=== PATIENT | female | born 1955 | race Caucasian/White ===

== ENCOUNTER 2017-12-23 14:20 | Outpatient (CLI) | payer MEDICARE ==
--- NOTE | 2017-12-24 18:49 | Mammography Report ---
DIGITAL SCREENING MAMMOGRAM: 12/23/2017 CLINICAL INDICATION: A 62-year-old for baseline. TECHNIQUE: Routine CC and MLO projections were obtained of the breasts. FINDINGS: The breasts demonstrate heterogeneously dense fibroglandular parenchyma bilaterally. A few punctate, typically benign calcifications are present. No suspicious masses, clustered microcalcifications, or regions of architectural distortion are identified. IMPRESSION: BENIGN FINDINGS. RECOMMENDATION: Routine annual screening unless otherwise clinically indicated. BIRADS category 2 benign findings. STANDARD QUALIFYING STATEMENTS 1. This examination was reviewed with the aid of Computed-Aided Detection (CAD). 2. A negative or benign imaging report should not delay biopsy if clinically suspicious findings are present. Consider surgical consultation if warranted. More than 5% of cancers are not identified by imaging. 3. Dense breasts may obscure an underlying neoplasm. TD: 12/24/2017 18:48
== END 2017-12-23 14:21 | disposition home or self-care (01) ==
LOC: DI 14:20
PROVIDERS: ATTEND Internal Medicine
DX: Z12.31 Encounter for screening mammogram for malignant neoplasm of breast (principal)
CPT/HCPCS: 77067

== ENCOUNTER 2017-12-23 14:23 | Outpatient (CLI) | payer MEDICARE ==
--- NOTE | 2017-12-24 14:32 | DEXA Report ---
DEXA SCAN: 12/23/2017 CLINICAL INDICATION: Postsurgical malabsorption, postmenopausal. TECHNIQUE: Dual energy x-ray absorptiometry (DXA) was performed on a [email or web address] system. Regions measured are the AP spine, femoral neck, and, if needed, forearm. COMPARISON: None. In accordance with the International Society for Clinical Densitometry (ISCD) guidelines, data from previous exams may be reanalyzed using current recommendations and techniques. This is done to allow a more accurate basis for comparison with the current study. FINDINGS The data for the lumbar spine is as follows: REGION BMD (g/cm/cm) T-SCORE Z-SCORE L1 1.175 0.4 1.8 L2 1.219 0.2 1.6 L3 1.220 0.2 1.6 L4 1.209 0.1 1.5 L1-L4 1.207 0.2 1.6 NOTE: All evaluable vertebrae are used for classification. The data for the hip is as follows: REGION BMD (g/cm/cm) T-SCORE Z-SCORE Neck 1.043 0.0 1.4 TOTAL 1.097 0.7 1.8 NOTE: The femoral neck or total proximal femur, whichever is lowest, is used for classification. IMPRESSION THE WHO CLASSIFICATION BASED ON THE INTERNATIONAL REFERENCE STANDARD IS NORMAL. THE FRACTURE RISK IS NOT INCREASED. RECOMMENDATION: Patients with diagnosis of osteoporosis or osteopenia should have regular bone mineral density assessment. For those eligible for Medicare, routine testing is allowed once every 2 years. Testing frequency can be increased for patients who have rapidly progressing disease or for those who are receiving medical therapy to restore bone mass. COMMENT: World Health Organization (WHO) definitions for osteoporosis and osteopenia: NORMAL BMD: T-score at 1.0 or higher, fracture risk is low. OSTEOPENIA BMD: T-score between 1.0 and -2.5, fracture risk is increased. OSTEOPOROSIS BMD: T-score at 2.5 or lower, fracture risk high. National Osteoporosis Foundation recommends: 1. Obtain adequate dietary calcium (at least 1200 mg per day) and vitamin D (400 -800 international units per day). 2. Participate, as appropriate, in regular weightbearing and muscle- strengthening exercise. 3. Avoid tobacco use and reduce alcohol and caffeine intake. 4. For more detailed information see the website at www.NOF.org. TD: 12/23/2017 16:09 CINTHIA
== END 2017-12-23 14:24 | disposition home or self-care (01) ==
LOC: DI 14:23
PROVIDERS: ATTEND Internal Medicine
DX: Z13.820 Encounter for screening for osteoporosis (principal); N95.8 Other specified menopausal and perimenopausal disorders
CPT/HCPCS: 77080

== ENCOUNTER 2018-01-30 11:41 | Outpatient (CLI) | payer SELFPAY | END 2018-01-30 11:42 | disposition home or self-care (01) | LOC: LAB 11:41 | PROVIDERS: ATTEND Urology | DX: N20.0 Calculus of kidney (principal) | CPT/HCPCS: 36415 ==

== ENCOUNTER 2018-07-04 18:27 | Inpatient (IN) | payer MEDICARE ==
[2018-07-04 19:12] LABS: BASOPHILS % (AUTO) 0.5 %; EOSINOPHILS # (AUTO) 0.1 10^3/uL (0.0-0.7); EOSINOPHILS % (AUTO) 1.2 %; HGB - HEMOGLOBIN 13.4 g/dL (12.0-16.0); LYMPHOCYTES # (AUTO) 3.1 10^3/uL (1.5-3.5); LYMPHOCYTES % (AUTO) 43.4 %; MEAN CORPUSCULAR HEMOGLOBIN 32.1 pg (27.0-31.0); MEAN CORPUSCULAR HGB CONC 35.3 g/dL (32.0-36.0); MEAN PLATELET VOLUME 7.1 fL (7.9-10.8); MONOCYTES # (AUTO) 0.6 10^3/uL (0.0-1.0); MONOCYTES % (AUTO) 8.3 %; NEUTROPHILS # (AUTO) 3.3 10^3/uL (1.5-6.6); NEUTROPHILS % (AUTO) 46.6 %; PLT - PLATELET COUNT 400 10^3/uL (130-450); RED BLOOD COUNT 4.17 10^6/uL (4.20-5.40); RED CELL DISTRIBUTION WIDTH 14.5 % (12.0-15.0); WHITE BLOOD COUNT 7.1 x10^3/uL (4.8-10.8)
[2018-07-04 19:23] LABS: ALBUMIN 4.1 g/dL (3.2-5.5); ALBUMIN/GLOBULIN RATIO 1.1 (1.0-2.2); ALKALINE PHOSPHATASE 79 IU/L (42-121); ALT ALANINE AMINOTRANSFERASE 16 IU/L (10-60); AST ASPARTATE AMINOTRANSFERASE 21 IU/L (10-42); BILIRUBIN,TOTAL < 0.2 mg/dL (0.2-1.0); BUN - BLOOD UREA NITROGEN 18 mg/dL (6-20); CALCIUM 9.2 mg/dL (8.5-10.3); CARBON DIOXIDE - CO2 25 mmol/L (21-32); CHLORIDE 99 mmol/L (101-111); GFR - MDRD 56 (>89); GLUCOSE 171 mg/dL (70-100); LIPASE 33 U/L (22-51); SODIUM 132 mmol/L (135-145); TOTAL PROTEIN 7.7 g/dL (6.7-8.2)
[2018-07-04] MEDS ORDERED: KETOROLAC 60 MG/2 ML VIAL IVP STA (20:04)
[2018-07-04] MEDS ORDERED: SODIUM CHLORIDE 0.9% 1,000 ML IV ONE (20:04)
[2018-07-04] MEDS ORDERED: ONDANSETRON 4 MG/2 ML VIAL IVP STA (20:04)
--- NOTE | 2018-07-04 20:06 | ED Physician Documentation ---
History of Present Illness - Stated complaint Stated Complaint: FEMALE FU - Chief complaint Chief Complaint: Abd Pain - History obtained from History obtained from: Patient - Additonal information Additional information: 63-year-old female with a history of recurrent small bowel obstructions presents the emergency department for increasing lower abdominal pain with No bowel movements for the past 7 days and associated nausea. The pain has progressively worsened. No relieving factors. No triggering factors. The patient reports this being similar to prior episodes of her bowel obstructions. No relieving factors. No triggering factors. Symptoms are described as moderate Review of Systems Constitutional: reports: Chills, Fatigue. denies: Fever Eyes: denies: Loss of vision Ears: denies: Ear pain Throat: denies: Sore throat Cardiac: denies: Chest pain / pressure Respiratory: denies: Dyspnea GI: reports: Abdominal Pain, Nausea, Constipation : denies: Dysuria Skin: denies: Rash Musculoskeletal: denies: Back pain Neurologic: denies: Generalized weakness Immunocompromised: denies: Chemotherapy PD PAST MEDICAL HISTORY - Past Medical History Past Medical History: Yes Cardiovascular: None Respiratory: None Endocrine/Autoimmune: None GI: GERD, Chronic constipation, Other : Kidney stones HEENT: None Psych: None, Anxiety, Panic attacks Musculoskeletal: None Derm: None - Past Surgical History Past Surgical History: Yes General: Cholecystectomy, Appendectomy, Colonoscopy, Other 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 - Present Medications Home Medications: Ambulatory Orders Medication Instructions Recorded Confirmed Estrogens, Conjugated [Premarin] 1.25 mg PO DAILY 04/08/14 12/05/15 Gabapentin 300 mg PO TID 04/08/14 12/05/15 Ciprofloxacin HCl [Cipro] 500 mg PO BID #20 tablet 12/05/15 Ketorolac [Toradol] 5 mg PO Q6H PRN #16 tablet 12/05/15 Saccharomyces Boulardii [Florastor] 500 mg PO BID #40 capsule 12/05/15 Tamsulosin [Flomax] 0.4 mg PO DAILY #7 capsule 12/05/15 - Allergies Allergies/Adverse Reactions: Allergies Allergy/AdvReac Type Severity Reaction Status Date / Time haloperidol [From Haldol] Allergy Hallucinati Verified 11/21/14 15:02 ons haloperidol lactate * Allergy Hallucinati Verified 11/21/14 15:02 [From Haldol] ons lorazepam [From Ativan] Allergy Hallucinati Verified 11/21/14 15:02 ons - Social History Does the pt smoke?: Yes Smoking Status: Current some day smoker Does the pt drink ETOH?: Yes Does the pt have substance abuse?: No Substance Use and Type: Marijuana - Immunizations Immunizations are current?: Yes - POLST Patient has POLST: No PD ED PE NORMAL - General General: Alert and oriented X 3. No: No acute distress (The patient appears uncomfortable) - HEENT HEENT: Atraumatic, PERRL, EOMI, Ears normal - Cardiac Cardiac: RRR, Strong equal pulses - Respiratory Respiratory: No respiratory distress, Clear bilaterally - Abdomen Abdomen: Soft, Non distended. No: Non tender (The patient has generalized tenderness, there is no rebound or peritoneal signs) - Derm Derm: Normal color - Extremities Extremities: No deformity, No edema - Neuro Neuro: Alert and oriented X 3, Normal speech - Psych Psych: Normal mood Results - Vitals Vitals: Vital Signs - 24 hr 07/04/18 18:36 Temperature 36.2 C L Heart Rate 75 Respiratory 14 Rate Blood Pressure 139/69 H O2 Saturation 99 Oxygen O2 Source Room air - Labs Labs: Laboratory Tests 07/04/18 07/04/18 07/04/18 19:02 19:02 20:00 WBC 7.1 RBC 4.17 L Hgb 13.4 Hct 37.9 MCV 91.0 MCH 32.1 H MCHC 35.3 RDW 14.5 Plt Count 400 MPV 7.1 L Neut # (Auto) 3.3 Lymph # (Auto) 3.1 Hinds # (Auto) 0.6 Eos # (Auto) 0.1 Baso # (Auto) 0.0 Absolute Nucleated RBC 0.01 Nucleated RBC % 0.1 Sodium 132 L Potassium 3.8 Chloride 99 L Carbon Dioxide 25 Anion Gap 8.0 BUN 18 Creatinine 1.0 Estimated GFR (MDRD) 56 L Glucose 171 H Calcium 9.2 Total Bilirubin < 0.2 L AST 21 ALT 16 Alkaline Phosphatase 79 Total Protein 7.7 Albumin 4.1 Globulin 3.6 Albumin/Globulin Ratio 1.1 Lipase 33 Urine Color YELLOW Urine Clarity CLEAR Urine pH 6.0 Ur Specific [place] 1.015 Urine Protein NEGATIVE Urine Glucose (UA) NEGATIVE Urine Ketones NEGATIVE Urine Occult Blood NEGATIVE Urine Nitrite NEGATIVE Urine Bilirubin NEGATIVE Urine Urobilinogen 0.2 (NORMAL) Ur Leukocyte Esterase NEGATIVE Ur Microscopic Review NOT INDICATED Urine Culture Comments NOT INDICATED - Rads (name of study) CT abd/pelvis Radiology: Final report received (1. Nonobstructing bilateral intrarenal stones , left greater than right. 2. Mild diffuse small bowel dilatation most likely representing ileus. There are postoperative changes involving the mesentery however no evidence of high-grade mechanical bowel obstruction, fluid collection or pneumoperitoneum. ) PD MEDICAL DECISION MAKING - ED course ED course: The patient's workup shows an ileus and the patient has not had a bowel movement for the past several days. Given the patient's history of recurrent bowel obstructions she will benefit from admission to the hospital for further management to improve her bowel function. The findings and plan were discussed the patient understands and agrees. The case was discussed with the hospitalist who accepts the patient onto his service. - Sepsis Event Vital Signs: Vital Signs - 24 hr 07/04/18 18:36 Temperature 36.2 C L Heart Rate 75 Respiratory 14 Rate Blood Pressure 139/69 H O2 Saturation 99 Oxygen O2 Source Room air Departure - Departure Disposition: ED Place in Observation Clinical Impression: Acute abdominal pain, Ileus Condition: Fair
[2018-07-04 20:12] LABS: BILIRUBIN,URINE NEGATIVE (NEGATIVE); GLUCOSE, URINE (UA) NEGATIVE (NEGATIVE); KETONES,URINE (UA) NEGATIVE (NEGATIVE); LEUKOCYTE ESTERASE, URINE NEGATIVE (NEGATIVE); NITRITE,URINE NEGATIVE (NEGATIVE); OCCULT BLOOD,URINE NEGATIVE (NEGATIVE); PROTEIN,URINE NEGATIVE (NEGATIVE); UROBILINOGEN,URINE 0.2 (NORMAL) E.U./dL (NORMAL)
[2018-07-04 20:18] LABS: CLARITY,URINE CLEAR (CLEAR)
--- NOTE | 2018-07-04 20:38 | CT Report ---
Reason: abd pain for few days Procedure Date: 07/04/2018 Accession Number: [id number] / [id number] Procedure: CT - Abdomen/Pelvis W/O CPT Code: FULL RESULT: EXAM: CT ABDOMEN AND PELVIS EXAM DATE: 07/04/2018 08:02 PM. CLINICAL HISTORY: Abd pain for few days. COMPARISONS: ABDOMEN/PELVIS W/O 12/05/2015. TECHNIQUE: Routine helical CT imaging was performed through the abdomen and pelvis. IV contrast: . Enteric contrast: No. Reconstructions: Coronal and sagittal. In accordance with CT protocol optimization, one or more of the following dose reduction techniques were utilized for this exam: automated exposure control, adjustment of mA and/or KV based on patient size, or use of iterative reconstructive technique. FINDINGS: Lung Bases: Unremarkable. Liver: Normal. No masses. Gallbladder/Bile Ducts: Unremarkable. Spleen: Normal. Pancreas: Normal. Adrenal Glands: Normal. Kidneys: There are numerous calyceal stones scattered throughout the left kidney measuring up to 9 mm. A few punctate right intrarenal stones are also seen. There are no obstructing calculi. Peritoneal Cavity/Bowel: There is been previous bowel resections. There is mild small bowel dilatation without evidence of high-grade obstruction. No fluid collections or free air. No evidence of appendicitis. Pelvic Organs: The uterus has been removed. There is no pelvic mass, lymphadenopathy or fluid collection. The urinary bladder is unremarkable. Vasculature: No aneurysms or other significant abnormality. Bones: No significant abnormality. Other: None. IMPRESSION: 1. Nonobstructing bilateral intrarenal stones, left greater than right. 2. Mild diffuse small bowel dilatation most likely representing ileus. There are postoperative changes involving the mesentery however no evidence of high-grade mechanical bowel obstruction, fluid collection or pneumoperitoneum. RADIA
[2018-07-04] MEDS ORDERED: ONDANSETRON 4 MG/2 ML VIAL IVP PRN (22:14)
[2018-07-04] MEDS ORDERED: NICOTINE 14 MG PATCH TOP SCH (22:25)
--- NOTE | 2018-07-04 22:50 | HISTORY & PHYSICAL EXAMINATION ---
Chief Complaint - Chief Complaint Chief Complaint: diffuse abdominal pain History of Present Illness - History of Present Illness HPI Comment/Other: Patient is a 63 y/o female with history of multiple bowel obstructions owing to several abdominal surgeries who presented to the ED today with complain of diffuse sharp abdominal pain and cramp. She also complains of nausea but no vomiting and decreased appetite. She reports having a small bowel movement today and then a 'watery' stool after that. Prior to this, her last BM was 7 days ago. She denies chest pain or PRIMO. No fever or chills. Her last episode of bowel obstruction was 11 years ago. At bedside she appears to be resting comfortably. However she rates he pain 8/ 10. He abdomen is soft and non-distended but diminished bowel sounds noted. The rest of her history is unremarkable. 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 : reports: None, Kidney stones HEENT: reports: None Psych: reports: None, Anxiety, Panic attacks Musculoskeletal: reports: None Derm: reports: None MRSA Hx?: No - Past Surgical History General: reports: Cholecystectomy, Appendectomy, Colonoscopy, Other Ortho: reports: 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 - Family & Social History Family History: Mother: , CVA/TIA, Hypertension, Father: , Hypertension, [place] Living arrangement: At home - Substance History Use: Uses substance without health or social issues: Tobacco, Alcohol Dependence: Experiences withdrawal or developed tolerances: NONE Tobacco Details: Cigarettes - POLST Patient has POLST: No Meds/Allgy - Home Medications Home Medications: Ambulatory Orders Medication Instructions Recorded Confirmed Estrogens, Conjugated [Premarin] 1.25 mg PO DAILY 04/08/14 12/05/15 Gabapentin 300 mg PO TID 04/08/14 12/05/15 Ciprofloxacin HCl [Cipro] 500 mg PO BID #20 tablet 12/05/15 Ketorolac [Toradol] 5 mg PO Q6H PRN #16 tablet 12/05/15 Saccharomyces Boulardii [Florastor] 500 mg PO BID #40 capsule 12/05/15 Tamsulosin [Flomax] 0.4 mg PO DAILY #7 capsule 12/05/15 - Allergies Allergies/Adverse Reactions: Allergies Allergy/AdvReac Type Severity Reaction Status Date / Time haloperidol [From Haldol] Allergy Hallucinati Verified 11/21/14 15:02 ons haloperidol lactate * Allergy Hallucinati Verified 11/21/14 15:02 [From Haldol] ons lorazepam [From Ativan] Allergy Hallucinati Verified 11/21/14 15:02 ons Review of Systems - Constitutional Constitutional: reports: Poor appetite - Eyes Eyes: denies: Pain, Vision loss - Ears, Nose & Throat Ears, Nose & Throat: denies: Hearing loss, Sore throat - Cardiovascular Cariovascular: denies: Chest pain, Syncope - Respiratory Respiratory: denies: Cough, Wheezing, SOB at rest - Gastrointestinal Gastrointestinal: reports: Abdominal pain, Constipation, Nausea, Poor appetite. denies: Vomiting - Musculoskeletal Musculoskeletal: denies: Muscle pain, Muscle weakness, Joint swelling - Integumentary Integumentary: denies: Rash, Pruritis, Dryness - Neurological Neurological: denies: Headache, Dizziness, Numbness, Memory problems, Abnormal gait - Psychiatric Psychiatric: reports: Anxiety - Endocrine Endocrine: denies: Polyuria, Polydypsia - All Other Systems All Other Systems: reports: Reviewed and negative Exam - Vital Signs Vital Signs: Vital Signs x48h Temp Pulse Resp BP Pulse Ox 07/04/18 18:36 36.2 C L 75 14 139/69 H 99 - Physical Exam General Appearance: positive: Mild distress Eyes Bilateral: positive: PERRL, EOMI, No scleral icterus ENT: positive: ENT inspection nml, Purulent nasal drainage, Pharyngeal erythema , Oral lesions Neck: positive: Nml inspection, No JVD, Trachea midline, Lymphadenopathy (R), Lymphadenopathy (L) Respiratory: positive: Chest non-tender, No respiratory distress, Breath sounds nml. negative: Wheezes, Rales, Rhonchi Cardiovascular: positive: Regular rate & rhythm. negative: No murmur, No gallop , JVD present Abdomen: positive: No organomegaly, No distention, Tenderness (mild), Abnml bowel sounds (decreased). negative: Guarding Skin: positive: Color nml. negative: No rash, Cyanosis Extremities: positive: Nml appearance, No pedal edema Neurologic/Psychiatric: positive: Oriented x3, CN's nml (2-12), Mood/affect nml Conclusion/Plan - Problem List (1) Ileus Conclusion/Plan: Patient made NPO except for meds IV hydration with Normal saline at 100cc/hr Zofran 4mg IV q6hrs prn for nausea Toradol 15mg IV q6hr prn for pain Expect resolution. If worsening of symptoms within the next 12-24 hrs, Will consult general surgery (2) Calculus of kidney and ureter Conclusion/Plan: Non-obstructing and asymptomatic. Will monitor (3) Tobacco abuse Conclusion/Plan: Nicotine patch applied (4) DVT prophylaxis Conclusion/Plan: SCD's. Ambulate - Lab Results Fish Bones: 07/04/18 19:02 07/04/18 19:02 Core Measures - Anticipated LOS I expect patient to be DC'd or transferred within 96 hours.: Yes - DVT/VTE - Prophylaxis VTE/DVT Device ordered at admit?: Yes VTE/DVT Prophylaxis med ordered at admit?: No Not Ordered - Medical Reason: Not indicated (Patient can ambulate with no difficulties.)
[2018-07-05] MEDS: GABAPENTIN 300 MG CAPSULE PO SCH ×4 (00:15→20:16)
[2018-07-05] MEDS: SODIUM CHLORIDE 0.9% 1,000 ML IV SCH ×3 (02:32→17:35)
[2018-07-05] MEDS: SODIUM CHLORIDE FLUSH 0.9% 10 ML SYRINGE IVP SCH ×3 (03:04→16:03)
[2018-07-05] MEDS: KETOROLAC 15 MG/ML VIAL IVP PRN ×3 (06:03→20:08)
[2018-07-05 06:31] LABS: BASOPHILS % (AUTO) 0.4 %; EOSINOPHILS # (AUTO) 0.1 10^3/uL (0.0-0.7); EOSINOPHILS % (AUTO) 1.5 %; HGB - HEMOGLOBIN 11.6 g/dL (12.0-16.0); LYMPHOCYTES # (AUTO) 2.3 10^3/uL (1.5-3.5); LYMPHOCYTES % (AUTO) 42.8 %; MEAN CORPUSCULAR HEMOGLOBIN 30.9 pg (27.0-31.0); MEAN CORPUSCULAR HGB CONC 33.7 g/dL (32.0-36.0); MEAN CORPUSCULAR VOLUME 91.7 fL (81.0-99.0); MEAN PLATELET VOLUME 6.9 fL (7.9-10.8); MONOCYTES # (AUTO) 0.6 10^3/uL (0.0-1.0); MONOCYTES % (AUTO) 11.2 %; NEUTROPHILS # (AUTO) 2.3 10^3/uL (1.5-6.6); NEUTROPHILS % (AUTO) 44.1 %; PLT - PLATELET COUNT 322 10^3/uL (130-450); RED BLOOD COUNT 3.75 10^6/uL (4.20-5.40); RED CELL DISTRIBUTION WIDTH 14.5 % (12.0-15.0); WHITE BLOOD COUNT 5.3 x10^3/uL (4.8-10.8)
[2018-07-05 06:40] LABS: CALCIUM 8.1 mg/dL (8.5-10.3); CREATININE 1.2 mg/dL (0.4-1.0)
[2018-07-05] MEDS ORDERED: PANTOPRAZOLE 40 MG TABLET PO SCH (07:00)
[2018-07-05] MEDS ORDERED: METOCLOPRAMIDE 10 MG/2 ML VIAL IVP PRN (07:45)
[2018-07-05] MEDS ORDERED: METOCLOPRAMIDE 10 MG/2 ML VIAL IVP STA ×2 (09:04)
--- NOTE | 2018-07-05 13:41 | PROVIDER PROGRESS NOTE ---
Subjective - Prog Note Date Prog Note Date: 07/05/18 - Subjective Pt reports feeling: Improved Subjective: pt tolerate clear diet without N/V/D. but pt still complaint diffused abdominal pain. pt denies CP, fever, chill, SOB, headache. Current Medications - Current Medications Current Medications: Active Medications Gabapentin (Neurontin) 300 mg PO TID [facility] Last Admin: 07/05/18 06:03 Dose: 300 mg Sodium Chloride (Normal Saline 0.9%) 1,000 mls @ 100 mls/hr IV .Q10H [facility] Last Infusion: 07/05/18 06:57 Dose: 100 mls/hr Ketorolac Tromethamine (Toradol Inj (15mg)) 15 mg IVP Q6HR PRN PRN Reason: PAIN Stop: 07/09/18 22:29 Last Admin: 07/05/18 06:03 Dose: 15 mg Metoclopramide HCl (Reglan Inj) 5 mg IVP Q6HR PRN PRN Reason: Nausea / Vomiting Ondansetron HCl (Zofran Inj) 4 mg IVP Q6HR PRN PRN Reason: Nausea / Vomiting Pantoprazole Sodium (Protonix) 40 mg PO QDAC [facility] Last Admin: 07/05/18 06:03 Dose: 40 mg Sodium Chloride (Normal Saline Flush 0.9%) 10 ml IVP PRN PRN PRN Reason: NEEDED PER PROVIDER ORDERS Sodium Chloride (Normal Saline Flush 0.9%) 10 ml IVP 0100,0900,1700 [facility] Last Admin: 07/05/18 09:35 Dose: 10 ml Gabapentin 300 mg PO QID 04/08/14 Estropipate 0.75 mg PO DAILY 07/05/18 Losartan [Cozaar] 50 mg PO QPM 07/05/18 raNITIdine [Zantac] 150 mg PO BID 07/05/18 Objective - Objective General Appearance: positive: No acute distress, Alert. negative: Lethargic Eyes Bilateral: positive: Normal inspection, PERRL, No lid inflammation, Conjunctivae nml ENT: positive: ENT inspection nml, Pharynx nml, No signs of dehydration. negative: Purulent nasal drainage, Pharyngeal erythema, Oral lesions Neck: positive: Nml inspection, Thyroid nml, No JVD, Trachea midline. negative : Thyromegaly, Lymphadenopathy (R), Lymphadenopathy (L), Stiff neck, Swelling/ bruising, Tracheal deviation Respiratory: positive: Chest non-tender, No respiratory distress, Breath sounds nml. negative: Wheezes, Rales, Rhonchi Cardiovascular: positive: Regular rate & rhythm, No murmur, No gallop. negative : Irregularly irregular, Extrasystoles, Tachycardia, Bradycardia, JVD present, Systolic murmur, Diastolic murmur Peripheral Pulses: 2+ Radial (R), 2+ Radial (L), 2+ Dorsalis pedis (R), 2+ Dorsalis pedis (L) Abdomen: positive: Non-tender, No organomegaly, No distention, Other (mild reduced bowel sounds). negative: Tenderness, Guarding, Rebound Back: positive: Nml inspection. negative: CVA tenderness (R), CVA tenderness (L ) Skin: positive: Color nml, No rash, Warm, Dry. negative: Cyanosis, Diaphoresis , Pallor Extremities: positive: Non-tender, Full ROM, Nml appearance. negative: Calf tenderness, Joint swelling, Cha's sign/cords Neurologic/Psychiatric: positive: Oriented x3, Motor nml, Sensation nml, Mood/ affect nml. negative: Weakness, Sensory loss, Facial droop, Slurred/abnml speech, Depressed mood/affect - Lab Results Fish Bones: 07/05/18 06:22 07/05/18 06:22 ABX Reporting Has patient been on IV antibiotics over the past 48 hours?: No Assessment/Plan - Problem List (1) Ileus Impression: Conclusion/Plan: 07/05 pt tolerate clear diet, no N/V/D. but continue complain diffused abdominal pain pt's bowel is soft, mild reduced bowel sound at left quadrant of abdominal CT of abdomen indicates small bowel ileus continue bowel rest continue IVF for hydration continue Tylenol and Toradol pain control, hold opiates pt's pain, per pt report, is not worsening but improve tolerate of clear diet Reglan PRN for N/V Patient made NPO except for meds IV hydration with Normal saline at 100cc/hr Zofran 4mg IV q6hrs prn for nausea Toradol 15mg IV q6hr prn for pain Expect resolution. If worsening of symptoms within the next 12-24 hrs, Will consult general surgery (2) Calculus of kidney and ureter Conclusion/Plan: Non-obstructing and asymptomatic. Will monitor (3) Tobacco abuse Conclusion/Plan: Nicotine patch applied
[2018-07-05] MEDS: PANTOPRAZOLE 40 MG VIAL IVP SCH ×2 (14:37→20:07)
[2018-07-06] MEDS: SODIUM CHLORIDE FLUSH 0.9% 10 ML SYRINGE IVP SCH ×3 (03:44→16:45)
[2018-07-06] MEDS: SODIUM CHLORIDE 0.9% 1,000 ML IV SCH ×2 (05:32→13:42)
[2018-07-06 06:19] LABS: BASOPHILS % (AUTO) 0.4 %; EOSINOPHILS # (AUTO) 0.1 10^3/uL (0.0-0.7); EOSINOPHILS % (AUTO) 1.2 %; HGB - HEMOGLOBIN 11.4 g/dL (12.0-16.0); LYMPHOCYTES # (AUTO) 1.7 10^3/uL (1.5-3.5); LYMPHOCYTES % (AUTO) 37.6 %; MEAN CORPUSCULAR HEMOGLOBIN 31.2 pg (27.0-31.0); MEAN CORPUSCULAR HGB CONC 33.4 g/dL (32.0-36.0); MEAN CORPUSCULAR VOLUME 93.4 fL (81.0-99.0); MEAN PLATELET VOLUME 7.7 fL (7.9-10.8); MONOCYTES # (AUTO) 0.6 10^3/uL (0.0-1.0); NEUTROPHILS # (AUTO) 2.2 10^3/uL (1.5-6.6); NEUTROPHILS % (AUTO) 47.8 %; PLT - PLATELET COUNT 345 10^3/uL (130-450); RED BLOOD COUNT 3.64 10^6/uL (4.20-5.40); RED CELL DISTRIBUTION WIDTH 14.4 % (12.0-15.0); WHITE BLOOD COUNT 4.6 x10^3/uL (4.8-10.8)
[2018-07-06 06:48] LABS: CALCIUM 7.4 mg/dL (8.5-10.3)
[2018-07-06] MEDS: GABAPENTIN 300 MG CAPSULE PO SCH ×3 (07:03→21:15)
[2018-07-06] MEDS: PANTOPRAZOLE 40 MG VIAL IVP SCH ×2 (09:44→21:16)
[2018-07-06] MEDS: KETOROLAC 15 MG/ML VIAL IVP PRN ×2 (09:57→16:44)
[2018-07-06] MEDS: SODIUM CHLORIDE FLUSH 0.9% 10 ML SYRINGE IVP PRN ×3 (09:58→21:16)
[2018-07-06] MEDS ORDERED: IOPAMIDOL-300 50 ML VIAL ONE (11:19)
[2018-07-06] MEDS ORDERED: IOPAMIDOL-300 100 ML VIAL ONE (11:19)
[2018-07-06] MEDS ORDERED: GABAPENTIN 300 MG CAPSULE PO SCH (13:00)
[2018-07-06] MEDS: METOCLOPRAMIDE 10 MG/2 ML VIAL IVP SCH ×2 (13:09→18:44)
--- NOTE | 2018-07-06 14:21 | CT Report ---
Reason: ileous, abdominal pain, mult. surgeries Procedure Date: 07/06/2018 Accession Number: [id number] / [id number] Procedure: CT - Abdomen/Pelvis W/ CPT Code: FULL RESULT: EXAM: CT ABDOMEN AND PELVIS EXAM DATE: 07/06/2018 01:52 PM. CLINICAL HISTORY: Multiple surgeries. Abdominal pain. COMPARISONS: Abdomen/pelvis w/o 12/05/2015. Abdomen/pelvis w/o 07/04/2018. TECHNIQUE: Routine helical CT imaging was performed through the abdomen and pelvis. IV contrast: Isovue 300 100 mL. Enteric contrast: Oral contrast. Reconstructions: Coronal and sagittal. In accordance with CT protocol optimization, one or more of the following dose reduction techniques were utilized for this exam: automated exposure control, adjustment of mA and/or KV based on patient size, or use of iterative reconstructive technique. FINDINGS: Lung Bases: Unremarkable. Liver: Normal. Tiny hepatic cysts. No masses. Gallbladder/Bile Ducts: Cholecystectomy. Biliary ducts unremarkable for such. Spleen: Normal. Pancreas: Normal. Adrenal Glands: Normal. Kidneys: Numerous 9 mm and smaller stones in the left calyceal system. Several 1 mm stones in the right calyceal system. No hydronephrosis nor perinephric edema. Tiny bilateral renal cysts. Peritoneal Cavity/Bowel: Persistent mild dilatation proximal third of the small bowel with probable transition point left mid abdomen coronal image 27 axial image 51. Oral contrast is seen within the normal caliber distal two thirds of the small bowel and also within the normal caliber colon down to the rectum. No free air nor free fluid. Numerous clips throughout the abdomen. No bowel wall thickening. Appendix not visualized but no inflammatory changes adjacent to the cecum. Pelvic Organs: Hysterectomy. No stones in the small caliber urinary bladder. Normal rectum. Vasculature: No aneurysms or other significant abnormality. Bones: No significant abnormality. Other: None. IMPRESSION: 1. Stable mild/ partial small bowel obstruction junction of the proximal mid third of the ileum. 2. Bilateral nephrolithiasis. RADIA
[2018-07-06] MEDS ORDERED: IOPAMIDOL-300 100 ML VIAL IVP ONE (14:58)
[2018-07-06] MEDS ORDERED: IOPAMIDOL-300 50 ML VIAL PO ONE (14:58)
[2018-07-07] MEDS: KETOROLAC 15 MG/ML VIAL IVP PRN ×4 (00:11→21:38)
[2018-07-07] MEDS: SODIUM CHLORIDE FLUSH 0.9% 10 ML SYRINGE IVP SCH ×3 (00:12→20:32)
[2018-07-07] MEDS: SODIUM CHLORIDE FLUSH 0.9% 10 ML SYRINGE IVP PRN ×5 (00:12→21:38)
[2018-07-07] MEDS: METOCLOPRAMIDE 10 MG/2 ML VIAL IVP SCH ×2 (00:12→06:56)
[2018-07-07 05:56] LABS: BASOPHILS % (AUTO) 0.5 %; EOSINOPHILS % (AUTO) 0.9 %; HGB - HEMOGLOBIN 10.4 g/dL (12.0-16.0); LYMPHOCYTES # (AUTO) 1.8 10^3/uL (1.5-3.5); LYMPHOCYTES % (AUTO) 40.9 %; MEAN CORPUSCULAR HEMOGLOBIN 31.4 pg (27.0-31.0); MEAN CORPUSCULAR HGB CONC 34.1 g/dL (32.0-36.0); MEAN CORPUSCULAR VOLUME 92.1 fL (81.0-99.0); MEAN PLATELET VOLUME 7.1 fL (7.9-10.8); MONOCYTES # (AUTO) 0.7 10^3/uL (0.0-1.0); MONOCYTES % (AUTO) 15.4 %; NEUTROPHILS # (AUTO) 1.9 10^3/uL (1.5-6.6); NEUTROPHILS % (AUTO) 42.3 %; PLT - PLATELET COUNT 306 10^3/uL (130-450); RED BLOOD COUNT 3.31 10^6/uL (4.20-5.40); RED CELL DISTRIBUTION WIDTH 14.5 % (12.0-15.0); WHITE BLOOD COUNT 4.5 x10^3/uL (4.8-10.8)
[2018-07-07 06:08] LABS: ALBUMIN 2.8 g/dL (3.2-5.5); BILIRUBIN,TOTAL 0.2 mg/dL (0.2-1.0); CALCIUM 7.6 mg/dL (8.5-10.3); MAGNESIUM 1.8 mg/dL (1.7-2.8); TOTAL PROTEIN 5.5 g/dL (6.7-8.2)
[2018-07-07] MEDS: ACETAMINOPHEN 325 MG TABLET PO PRN ×2 (06:45→12:20)
[2018-07-07] MEDS: GABAPENTIN 300 MG CAPSULE PO SCH ×3 (06:45→21:38)
[2018-07-07] MEDS: PANTOPRAZOLE 40 MG VIAL IVP SCH ×2 (09:01→20:32)
--- NOTE | 2018-07-07 09:06 | PROVIDER PROGRESS NOTE ---
Subjective - Prog Note Date Prog Note Date: 07/06/18 Prog Note Time: 08:00 - Subjective Pt reports feeling: Improved Subjective: Roxane complains of ongoing bloating, and is tolerating a clear liquid diet. She denies any new symptoms such as shortness of breath, vomiting, diarrhea, or a new cough. Objective - Vital Signs/Intake & Output Reviewed Vital Signs: Yes Vital Signs: Vital Signs x48h Temp Pulse Resp BP Pulse Ox 07/07/18 08:00 36.7 C 65 20 134/68 H 97 Intake & Output: Intake & Output 07/04/18 07/05/18 07/06/18 07/07/18 23:59 23:59 23:59 23:59 Intake Total 2460.000 1737 1150 Balance 2460.000 1737 1150 - Objective General Appearance: positive: No acute distress, Alert, Anxious Eyes Bilateral: positive: Normal inspection, PERRL ENT: positive: ENT inspection nml, Pharynx nml, No signs of dehydration Neck: positive: Nml inspection, Thyroid nml, No JVD, Trachea midline Respiratory: positive: Chest non-tender, No respiratory distress, Breath sounds nml Cardiovascular: positive: Regular rate & rhythm, No murmur, No gallop, Irregularly irregular Peripheral Pulses: 1+ Radial (R), 1+ Radial (L) Abdomen: positive: No organomegaly, Nml bowel sounds, Tenderness, Guarding, Abnml bowel sounds (mildly hypotensive) Back: positive: Nml inspection Skin: positive: No rash, Warm, Dry Extremities: positive: Non-tender, Full ROM, Nml appearance, No pedal edema Neurologic/Psychiatric: positive: Oriented x3, CN's nml (2-12), Motor nml, Sensation nml, Mood/affect nml Reflexes: Bicep (R): 3+, Bicep (L): 3+ - Lab Results Fish Bones: 07/07/18 05:05 07/07/18 05:05 Other Labs: Lab Results x24hrs 07/07/18 07/07/18 07/07/18 Range/Units 05:05 05:05 05:05 WBC 4.5 L (4.8-10.8) x10^3/uL RBC 3.31 L (4.20-5.40) 10^6/uL Hgb 10.4 L (12.0-16.0) g/dL Hct 30.5 L (37.0-47.0) % MCV 92.1 (81.0-99.0) fL MCH 31.4 H (27.0-31.0) pg MCHC 34.1 (32.0-36.0) g/dL RDW 14.5 (12.0-15.0) % Plt Count 306 (130-450) 10^3/uL MPV 7.1 L (7.9-10.8) fL Neut # (Auto) 1.9 (1.5-6.6) 10^3/uL Lymph # (Auto) 1.8 (1.5-3.5) 10^3/uL [place] # (Auto) 0.7 (0.0-1.0) 10^3/uL Eos # (Auto) 0.0 (0.0-0.7) 10^3/uL Baso # (Auto) 0.0 (0.0-0.1) 10^3/uL Absolute Nucleated RBC 0.00 x10^3/uL Nucleated RBC % 0.1 /100WBC Sodium 140 (135-145) mmol/L Potassium 3.9 (3.5-5.0) mmol/L Chloride 112 H (101-111) mmol/L Carbon Dioxide 20 L (21-32) mmol/L Anion Gap 8.0 (6-13) BUN 15 (6-20) mg/dL Creatinine 1.0 (0.4-1.0) mg/dL Estimated GFR (MDRD) 56 L (>89) Glucose 109 H (70-100) mg/dL Calcium 7.6 L (8.5-10.3) mg/dL Magnesium 1.8 (1.7-2.8) mg/dL Total Bilirubin 0.2 (0.2-1.0) mg/dL AST 16 (10-42) IU/L ALT 12 (10-60) IU/L Alkaline Phosphatase 58 (42-121) IU/L Total Protein 5.5 L (6.7-8.2) g/dL Albumin 2.8 L (3.2-5.5) g/dL Globulin 2.7 (2.1-4.2) g/dL Albumin/Globulin Ratio 1.0 (1.0-2.2) Lipase 26 (22-51) U/L ABX Reporting Has patient been on IV antibiotics over the past 48 hours?: No Assessment/Plan - Problem List (1) Acute abdominal pain Impression: The patient complains of mainly bilateral upper quadrant abdominal pain that be edyta prior to admission, and has improved, although not resolved. Plan: Continue to monitor and treat with IV toradol Q6H as needed. Awaiting re-imaging results ordered today. (2) Ileus Impression: Initial imaging obtained on 07/04/18, showed a possible early ilious. She was put on clear liquids, that have been advanced as her nausea is much improved since the time of admission. Plan: Continue care and await imaging results to ensure improvement in possible ileus. (3) History of bowel resection Impression: The patient has a remote history of this, including multiple bowel surgeries in the past. She states that she consequently has multiple bowel adhesions/scarring and has been more prone to obstructions. Plan: Await imaging results. (4) Tobacco abuse Impression: The patient admits to a current smoking history and is now down to about 5 cigarettes per day. She is somewhat interested in quitting. She refuses the need for nicotine replacement. Plan: Continue to monitor.
[2018-07-07] MEDS: FUROSEMIDE 20 MG TABLET PO SCH (10:26)
[2018-07-07] MEDS: METOCLOPRAMIDE 10 MG TABLET PO SCH ×2 (11:22→19:05)
--- NOTE | 2018-07-07 13:09 | PROVIDER PROGRESS NOTE ---
Subjective - Prog Note Date Prog Note Date: 07/07/18 Prog Note Time: 12:00 - Subjective Pt reports feeling: No change, Worse Subjective: Roxane states that her abdominal swelling has become worse even since early this morning. She denies any new symptoms such as vomiting, bleeding, shortness of breath or a new cough. Current Medications - Current Medications Current Medications: Active Medications Acetaminophen (Tylenol) 650 mg PO Q4HR PRN PRN Reason: Pain or Fever > 38C (100.4F) Last Admin: 07/07/18 12:20 Dose: 650 mg Bisacodyl (Dulcolax Supp) 10 mg [place] DAILY PRN PRN Reason: Constipation Last Admin: 07/07/18 21:39 Dose: 10 mg Furosemide (Lasix) 20 mg PO DAILY [facility] Last Admin: 07/07/18 10:26 Dose: 20 mg Gabapentin (Neurontin) 300 mg PO TID [facility] Last Admin: 07/07/18 21:38 Dose: 300 mg Ketorolac Tromethamine (Toradol Inj (15mg)) 15 mg IVP Q6HR PRN PRN Reason: PAIN Stop: 07/09/18 22:29 Last Admin: 07/07/18 21:38 Dose: 15 mg Metoclopramide HCl (Reglan Inj) 10 mg IVP Q6HR [facility] Ondansetron HCl (Zofran Inj) 4 mg IVP Q6HR PRN PRN Reason: Nausea / Vomiting Last Admin: 07/06/18 18:44 Dose: 4 mg Pantoprazole Sodium (Protonix) 40 mg IVP BID [facility] Last Admin: 07/07/18 20:32 Dose: 40 mg Sodium Chloride (Normal Saline Flush 0.9%) 10 ml IVP PRN PRN PRN Reason: NEEDED PER PROVIDER ORDERS Last Admin: 07/07/18 21:38 Dose: 20 ml Sodium Chloride (Normal Saline Flush 0.9%) 10 ml IVP 0100,0900,1700 [facility] Last Admin: 07/07/18 20:32 Dose: 20 ml Gabapentin 300 mg PO QID 04/08/14 Estropipate 0.75 mg PO DAILY 07/05/18 Losartan [Cozaar] 50 mg PO QPM 07/05/18 raNITIdine [Zantac] 150 mg PO BID 09/10/18 Objective - Vital Signs/Intake & Output Reviewed Vital Signs: Yes Vital Signs: Vital Signs x48h Temp Pulse Resp BP Pulse Ox 07/07/18 08:00 36.7 C 65 20 134/68 H 97 Intake & Output: Intake & Output 07/04/18 07/05/18 07/06/18 07/07/18 23:59 23:59 23:59 23:59 Intake Total 2460.000 1737 1150 Balance 2460.000 1737 1150 - Objective General Appearance: positive: Alert, Moderate distress, Anxious Eyes Bilateral: positive: Normal inspection, PERRL ENT: positive: ENT inspection nml, Pharynx nml, No signs of dehydration Neck: positive: Nml inspection, Thyroid nml, No JVD, Trachea midline, Stiff neck Respiratory: positive: Chest non-tender, No respiratory distress, Breath sounds nml Cardiovascular: positive: Regular rate & rhythm, No gallop, Systolic murmur Peripheral Pulses: 1+ Radial (R), 1+ Radial (L) Abdomen: positive: Tenderness, Guarding, Abnml bowel sounds, Other (obese, firm, soft) Back: positive: Nml inspection Skin: positive: No rash, Warm, Dry Extremities: positive: Non-tender, Full ROM, Nml appearance, Other (swelling in BUE) Neurologic/Psychiatric: positive: Oriented x3, CN's nml (2-12), Motor nml, Sensation nml, Mood/affect nml Reflexes: Bicep (R): 3+, Bicep (L): 3+ - Lab Results Fish Bones: 07/07/18 05:05 07/07/18 05:05 Other Labs: Lab Results x24hrs 07/07/18 07/07/18 07/07/18 Range/Units 05:05 05:05 05:05 WBC 4.5 L (4.8-10.8) x10^3/uL RBC 3.31 L (4.20-5.40) 10^6/uL Hgb 10.4 L (12.0-16.0) g/dL Hct 30.5 L (37.0-47.0) % MCV 92.1 (81.0-99.0) fL MCH 31.4 H (27.0-31.0) pg MCHC 34.1 (32.0-36.0) g/dL RDW 14.5 (12.0-15.0) % Plt Count 306 (130-450) 10^3/uL MPV 7.1 L (7.9-10.8) fL Neut # (Auto) 1.9 (1.5-6.6) 10^3/uL Lymph # (Auto) 1.8 (1.5-3.5) 10^3/uL [place] # (Auto) 0.7 (0.0-1.0) 10^3/uL Eos # (Auto) 0.0 (0.0-0.7) 10^3/uL Baso # (Auto) 0.0 (0.0-0.1) 10^3/uL Absolute Nucleated RBC 0.00 x10^3/uL Nucleated RBC % 0.1 /100WBC Sodium 140 (135-145) mmol/L Potassium 3.9 (3.5-5.0) mmol/L Chloride 112 H (101-111) mmol/L Carbon Dioxide 20 L (21-32) mmol/L Anion Gap 8.0 (6-13) BUN 15 (6-20) mg/dL Creatinine 1.0 (0.4-1.0) mg/dL Estimated GFR (MDRD) 56 L (>89) Glucose 109 H (70-100) mg/dL Calcium 7.6 L (8.5-10.3) mg/dL Magnesium 1.8 (1.7-2.8) mg/dL Total Bilirubin 0.2 (0.2-1.0) mg/dL AST 16 (10-42) IU/L ALT 12 (10-60) IU/L Alkaline Phosphatase 58 (42-121) IU/L Total Protein 5.5 L (6.7-8.2) g/dL Albumin 2.8 L (3.2-5.5) g/dL Globulin 2.7 (2.1-4.2) g/dL Albumin/Globulin Ratio 1.0 (1.0-2.2) Lipase 26 (22-51) U/L ABX Reporting Has patient been on IV antibiotics over the past 48 hours?: No Assessment/Plan - Problem List (1) Acute abdominal pain Impression: The patient complains of mainly bilateral upper quadrant abdominal pain that began prior to admission, and has improved, although not resolved. General surgery was consulted as the patient has continued to become worse with her symptoms despite the encouragement of her recent imaging; abdominal/pelvis CT with oral and IV contrast showing contrast all the way through the GI tract to the rectum. The patient continues to have ongoing pain and abdominal distension. Plan: Continue to monitor and treat with IV toradol Q6H as needed. (2) Ileus Impression: Initial imaging obtained on 07/04/18, showed a possible early ilious and re- imaging gave some further hope as there was oral contrast noted throughout the colon and was appreciated at the rectum. She was initially started on CLs, then yesterday advanced to some softer foods, with intentions of complete resolution and returning home this morning. Upon exam, Roxane continued to complain of abdominal distension, a lack of BMs, and ongoing nausea. General surgery was consulted, who recommends a higher dose of Reglan, 3 enemas, and a suppository if no results. We appreciate this consult as this patient has a long, complicated bowel history. The patient was reluctant to surgical interventions, and now states, "I just want to feel better", and is no longer opposed to this idea if she could resolve her GI symptoms. Plan: Continue care and await surgery recommendations in the upcoming days. (3) History of bowel resection Impression: The patient has a remote history of this, including multiple bowel surgeries in the past. She states that she consequently has multiple bowel adhesions/scarring and has been more prone to obstructions. We have requested records from her PCP as to her exact surgical history and will gladly forward these to the general surgery team. Plan: continue to monitor. (4) Tobacco abuse Impression: The patient admits to a current smoking history and is now down to about 5 cigarettes per day. She is somewhat interested in quitting. She refuses the need for nicotine replacement. Plan: Continue to monitor. (5) Pulmonary hypertension Impression: Preliminary echo results show an elevated RVSP at rest of 39 mm Hg indicating mild to moderate increased right heart pressures. A great medication for this is spironolactone, but she was given lasix 20 mg po today as she had increased BUE swelling. She has chronic increased abdominal girth, and continues to smoke. Plan: Continue to monitor and plan to start spironolactone once this acute GI problem is resolved.
[2018-07-07] MEDS ORDERED: BISACODYL 10 MG SUPP PR PRN (14:13)
--- NOTE | 2018-07-07 15:34 | CONSULTATION NOTE ---
DATE OF SERVICE: 07/07/2018 Physician: Aaron Gordon MD HISTORY OF PRESENT ILLNESS: Patient is 63 years old. She has been in the hospital for several days now with a partial small-bowel obstruction. She has had numerous laparotomies, 20 of them, for bowel obstructions. She has had resections, so she was treated conservatively, has been on the medical se rvice since admission. This is the first day I have seen her as a surgeon. PHYSICAL EXAMINATION: On exam today, she is very distended, tympanitic, not passing flatus or having BMs. DIAGNOSTIC DATA: She had a CT scan with oral contrast yesterday, which I have reviewed, which shows the contrast entering the small bowel and completely exiting the colon with a complete view of her co haseeb, contrast in the rectum, and the patient says she has expelled that contrast from her rectum. TREATMENT She was started on a regular solid diet today and has become distended and tympanitic and i s again obstructed. PLAN: Reduce her diet to clear liquids give her allow her to have bowel rest again. She is on Joyce n, which I have increased from 5 to 10 mg every 6 hours, and giving her Fleets enemas and Dulcolax rick ppositories. We will see if we cannot get restitution of GI function in this fashion. We will try o ur best to not explore her abdomen again. I will be her seeing on a regular basis. TD: 07/07/2018 14:31
[2018-07-08] MEDS: METOCLOPRAMIDE 10 MG/2 ML VIAL IVP SCH ×5 (00:01→23:55)
[2018-07-08] MEDS: SODIUM CHLORIDE FLUSH 0.9% 10 ML SYRINGE IVP SCH ×4 (00:02→23:55)
[2018-07-08] MEDS: ACETAMINOPHEN 325 MG TABLET PO PRN (05:45)
[2018-07-08] MEDS: GABAPENTIN 300 MG CAPSULE PO SCH ×3 (05:48→21:07)
[2018-07-08] MEDS: SODIUM CHLORIDE FLUSH 0.9% 10 ML SYRINGE IVP PRN ×4 (05:48→21:05)
[2018-07-08 06:03] LABS: BASOPHILS % (AUTO) 0.4 %; EOSINOPHILS # (AUTO) 0.1 10^3/uL (0.0-0.7); EOSINOPHILS % (AUTO) 1.1 %; HGB - HEMOGLOBIN 10.9 g/dL (12.0-16.0); LYMPHOCYTES # (AUTO) 1.4 10^3/uL (1.5-3.5); MEAN CORPUSCULAR HEMOGLOBIN 31.7 pg (27.0-31.0); MEAN CORPUSCULAR HGB CONC 32.9 g/dL (32.0-36.0); MEAN CORPUSCULAR VOLUME 96.5 fL (81.0-99.0); MONOCYTES % (AUTO) 17.6 %; NEUTROPHILS # (AUTO) 3.4 10^3/uL (1.5-6.6); NEUTROPHILS % (AUTO) 56.9 %; PLT - PLATELET COUNT 318 10^3/uL (130-450); RED BLOOD COUNT 3.42 10^6/uL (4.20-5.40); WHITE BLOOD COUNT 5.9 x10^3/uL (4.8-10.8)
[2018-07-08 06:13] LABS: ALBUMIN 3.2 g/dL (3.2-5.5); ALBUMIN/GLOBULIN RATIO 1.2 (1.0-2.2); BILIRUBIN,TOTAL 0.5 mg/dL (0.2-1.0); CALCIUM 7.9 mg/dL (8.5-10.3); TOTAL PROTEIN 5.9 g/dL (6.7-8.2)
--- NOTE | 2018-07-08 06:53 | XRAY Report ---
Reason: bowel obstruction Procedure Date: 07/08/2018 Accession Number: [id number] / [id number] Procedure: XR - Abdomen Acute CPT Code: FULL RESULT: EXAM: ABDOMINAL SERIES AND PA CHEST EXAM DATE: 07/08/2018 06:08 AM. CLINICAL HISTORY: Bowel obstruction. COMPARISON: ABDOMEN 1 VIEW 02/09/2015. TECHNIQUE: 2 views abdomen and 1 view chest. FINDINGS: CHEST: Lungs/Pleura: No alveolar consolidation or pleural effusion seen. No pneumothorax. Mediastinum: Within exam limitations, cardiomediastinal contour is normal. ABDOMEN: Bowel Gas Pattern: Gas-filled large and small bowel loops. Multiple air-fluid levels. Free Air: None. Other: Extensive postoperative changes. IMPRESSION: 1. Extensive postoperative changes with multiple air-fluid levels. Findings may represent bowel obstruction. RADIA
[2018-07-08] MEDS: FUROSEMIDE 20 MG TABLET PO SCH (08:53)
[2018-07-08] MEDS: PANTOPRAZOLE 40 MG VIAL IVP SCH ×2 (08:53→21:04)
[2018-07-08] MEDS: BISACODYL 10 MG SUPP PR SCH ×3 (08:53→21:03)
--- NOTE | 2018-07-08 09:13 | CONSULTATION NOTE ---
DATE OF SERVICE: 07/08/2018 Physician: Aaron Gordon MD PROGRESS NOTE Patient is resolving her adynamic ileus. I have reviewed her abdominal series this morning, done at 0700, which shows copious amount of gas entering her colon throughout the entire colon. There are st ill some small pockets of air fluid levels in the small bowel. PHYSICAL EXAMINATION ABDOMEN: On exam, she is not having any abdominal pain. Her abdomen is much less distended. It is very soft and nontender. She does have active bowel sounds. IMPRESSION AND PLAN: Patient's ileus is resolving. We will very, very slowly advance her diet just to full liquids today. I have asked Dietitian to add additional protein supplements, and we will jus t go very slowly advancing her diet, but keep her on a full liquid diet with proteins supplements, an d I actually would consider sending her home tomorrow or the next day on that regimen, with no solids to be taken for a few weeks, but she can be maintained on a full liquid diet with protein supplement s easily at home. TD: 07/08/2018 08:28
--- NOTE | 2018-07-08 09:15 | PROVIDER PROGRESS NOTE ---
Subjective - Prog Note Date Prog Note Date: 07/08/18 Prog Note Time: 09:15 - Subjective Pt reports feeling: Improved Subjective: Roxane complains of ongoing nausea. She denies any new symptoms such as vomiting, headaches, bleeding, shortness of breath, or a new cough. Current Medications - Current Medications Current Medications: Active Medications Acetaminophen (Tylenol) 650 mg PO Q4HR PRN PRN Reason: Pain or Fever > 38C (100.4F) Last Admin: 07/10/18 06:48 Dose: 650 mg Gabapentin (Neurontin) 300 mg PO TID [facility] Last Admin: 07/10/18 06:39 Dose: 300 mg Lactulose (Enulose) 10 gm PO DAILY [facility] Last Admin: 07/10/18 09:21 Dose: 10 gm Losartan Potassium (Cozaar) 25 mg PO QPM [facility] Last Admin: 07/09/18 20:33 Dose: 25 mg Metoclopramide HCl (Reglan Inj) 10 mg IVP Q6HR [facility] Last Admin: 07/10/18 06:40 Dose: 10 mg Ondansetron HCl (Zofran Inj) 4 mg IVP Q6HR PRN PRN Reason: Nausea / Vomiting Last Admin: 07/06/18 18:44 Dose: 4 mg Pantoprazole Sodium (Protonix) 40 mg IVP BID [facility] Last Admin: 07/10/18 09:21 Dose: 40 mg Simethicone (Mylicon) 80 mg PO 0900,1300,1800,2100 [facility] Last Admin: 07/10/18 09:22 Dose: 80 mg Sodium Chloride (Normal Saline Flush 0.9%) 10 ml IVP PRN PRN PRN Reason: NEEDED PER PROVIDER ORDERS Last Admin: 07/10/18 09:22 Dose: 10 ml Sodium Chloride (Normal Saline Flush 0.9%) 10 ml IVP 0100,0900,1700 [facility] Last Admin: 07/10/18 09:22 Dose: 10 ml Spironolactone (Aldactone) 12.5 mg PO DAILY [facility] Last Admin: 07/10/18 09:21 Dose: 12.5 mg Gabapentin 300 mg PO QID 04/08/14 Estropipate 0.75 mg PO DAILY 07/05/18 Losartan [Cozaar] 50 mg PO QPM 07/05/18 raNITIdine [Zantac] 150 mg PO BID 07/05/18 Objective - Vital Signs/Intake & Output Reviewed Vital Signs: Yes Vital Signs: Vital Signs x48h Temp Pulse Resp BP Pulse Ox 07/08/18 08:00 36.3 C L 62 18 100/53 L 94 Intake & Output: Intake & Output 07/05/18 07/06/18 07/07/18 07/08/18 23:59 23:59 23:59 23:59 Intake Total 2460.000 1737 1920 360 Balance 2460.000 1737 1920 360 - Objective General Appearance: positive: Alert, Mild distress, Anxious Eyes Bilateral: positive: Normal inspection, PERRL ENT: positive: ENT inspection nml, Pharynx nml, No signs of dehydration Neck: positive: Nml inspection, Thyroid nml, No JVD, Trachea midline Respiratory: positive: Chest non-tender, No respiratory distress, Breath sounds nml Cardiovascular: positive: Regular rate & rhythm, No gallop Peripheral Pulses: 1+ Radial (R), 1+ Radial (L) Abdomen: positive: Tenderness, Guarding, Abnml bowel sounds, Other (rounded, firm) Back: positive: Nml inspection Skin: positive: No rash, Warm, Dry Extremities: positive: Non-tender, Full ROM, Nml appearance, No pedal edema Neurologic/Psychiatric: positive: Oriented x3, CN's nml (2-12), Motor nml, Sensation nml, Mood/affect nml Reflexes: Bicep (R): 3+, Bicep (L): 3+ - Lab Results Fish Bones: 07/10/18 06:21 07/10/18 06:21 Other Labs: Lab Results x24hrs 07/08/18 07/08/18 07/08/18 Range/Units 05:35 05:35 05:35 WBC 5.9 (4.8-10.8) x10^3/uL RBC 3.42 L (4.20-5.40) 10^6/uL Hgb 10.9 L (12.0-16.0) g/dL Hct 33.0 L (37.0-47.0) % MCV 96.5 (81.0-99.0) fL MCH 31.7 H (27.0-31.0) pg MCHC 32.9 (32.0-36.0) g/dL RDW 15.0 (12.0-15.0) % Plt Count 318 (130-450) 10^3/uL MPV 7.0 L (7.9-10.8) fL Neut # (Auto) 3.4 (1.5-6.6) 10^3/uL Lymph # (Auto) 1.4 L (1.5-3.5) 10^3/uL [place] # (Auto) 1.0 (0.0-1.0) 10^3/uL Eos # (Auto) 0.1 (0.0-0.7) 10^3/uL Baso # (Auto) 0.0 (0.0-0.1) 10^3/uL Absolute Nucleated RBC 0.01 x10^3/uL Nucleated RBC % 0.1 /100WBC Sodium 137 (135-145) mmol/L Potassium 3.6 (3.5-5.0) mmol/L Chloride 107 (101-111) mmol/L Carbon Dioxide 20 L (21-32) mmol/L Anion Gap 10.0 (6-13) BUN 19 (6-20) mg/dL Creatinine 1.0 (0.4-1.0) mg/dL Estimated GFR (MDRD) 56 L (>89) Glucose 108 H (70-100) mg/dL Calcium 7.9 L (8.5-10.3) mg/dL Total Bilirubin 0.5 (0.2-1.0) mg/dL AST 18 (10-42) IU/L ALT 13 (10-60) IU/L Alkaline Phosphatase 72 (42-121) IU/L B-Natriuretic Peptide 457 H (5-100) pg/mL Total Protein 5.9 L (6.7-8.2) g/dL Albumin 3.2 (3.2-5.5) g/dL Globulin 2.7 (2.1-4.2) g/dL Albumin/Globulin Ratio 1.2 (1.0-2.2) - Diagnostic Imaging Diagnostic Imaging Results: positive: Final report reviewed Diagnostic Imaging Comments: EXAM: ABDOMINAL SERIES AND PA CHEST EXAM DATE: 07/08/2018 06:08 AM. ABDOMEN: Bowel Gas Pattern: Gas-filled large and small bowel loops. Multiple air-fluid levels. Free Air: None. Other: Extensive postoperative changes. IMPRESSION: 1. Extensive postoperative changes with multiple air-fluid levels. Findings may represent bowel obstruction. EXAM: ABDOMEN RADIOGRAPHY EXAM DATE: 07/09/2018 09:22 AM. Bowel Gas Pattern: Mild gaseous distention of small bowel and colon. Postsurgical changes are seen throughout the abdomen as before. No portal venous gas or pneumatosis. Free Air: None. IMPRESSION: 1. Mild gaseous distention of small bowel and colon without evidence for ob struction. 2. No free air. 3. Left renal calculi. ABX Reporting Has patient been on IV antibiotics over the past 48 hours?: No Assessment/Plan - Problem List (1) Acute abdominal pain Impression: The patient complains of mainly bilateral upper quadrant abdominal pain that began prior to admission, and has improved, although not resolved. General surgery was consulted as the patient has continued to become worse with her symptoms despite the encouragement of her recent imaging; abdominal/pelvis CT with oral and IV contrast showing contrast all the way through the GI tract to the rectum (07/06). The patient continues to have ongoing pain and abdominal distension. She has had 2 more KUB x-rays, on 07/08 maybe an obstruction & 07/09 without evidence of obstruction. Clinically, she appears miserable and continues to have distension with tenderness requiring pain medication. General surgery suggests TPN, and no surgery or scopes. *The patient is not happy with this and request that she be transferred to a hospital in [place] since there is a surgeon at that facility who knows her and would be able to help her out. After a long conversation with her and her boyfriend, Haile, she is willing to get a second opinion tomorrow from our next general surgeon, Dr. Hoffmann. Plan: Continue to monitor and treat with IV toradol Q6H as needed, continue Reglan, and lactulose. (2) Ileus Impression: Initial imaging obtained on 07/04/18, showed a possible early ilious and re- imaging gave some further hope as there was oral contrast noted throughout the colon and was appreciated at the rectum. She remains on clear liquid. Upon exam, Roxane continues to complain of abdominal distension, a lack of BMs, and ongoing nausea. General surgery was consulted, who recommends a higher dose of Reglan, 3 enemas, and a suppository Q6H if no results. He also recommends bowel rest with TPN administration as she has been likely comprised for longer than her hospital stay. Plan: Continue care and await surgery second opinion consult in the AM. (3) History of bowel resection Impression: The patient has a remote history of this, including multiple bowel surgeries in the past. She states that she consequently has multiple bowel adhesions/scarring and has been more prone to obstructions. We have requested records from her PCP, which was offered to surgery. It does not appear that these records were reviewed as of today. 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 She came to the OV on 04/06/18 with a primary complaint of N/V/abdominal pain with constipation. She has found this difficult to control. Feels it is related to preservatives in food, since she recently took a trip to [facility] where everything was much better because the food is preservative free/fresh foods. On his exam he noted her abdomen as rotund, mild TTP over umbilicus and LLQ. He was going to check triglycerides, iron studies, and obtain a CT as he was concerned about pancreatitis. Plan: continue to monitor. (4) Tobacco abuse Impression: The patient admits to a current smoking history and is now down to about 5 cigarettes per day. She is somewhat interested in quitting. She refuses the need for nicotine replacement. Plan: Continue to monitor. (5) Pulmonary hypertension Impression: Echo results show an elevated RVSP at rest of 39 mm Hg indicating mild to moderate increased right heart pressures. A great medication for this is spironolactone, but she was given lasix 20 mg po today as she had increased BUE swelling. She has chronic increased abdominal girth, and continues to smoke. Plan: Continue to monitor and plan to start spironolactone once this acute GI problem is resolved.
[2018-07-08] MEDS: KETOROLAC 15 MG/ML VIAL IVP PRN (17:09)
[2018-07-08] MEDS: LACTULOSE 10 GM /15 ML UDC PO SCH (18:46)
[2018-07-09] MEDS: BISACODYL 10 MG SUPP PR SCH ×2 (03:19→11:50)
[2018-07-09] MEDS: SODIUM CHLORIDE FLUSH 0.9% 10 ML SYRINGE IVP PRN ×4 (05:54→14:07)
[2018-07-09] MEDS: METOCLOPRAMIDE 10 MG/2 ML VIAL IVP SCH ×3 (05:54→18:12)
[2018-07-09] MEDS: GABAPENTIN 300 MG CAPSULE PO SCH ×3 (05:54→22:00)
[2018-07-09 06:25] LABS: BASOPHILS % (AUTO) 0.4 %; EOSINOPHILS # (AUTO) 0.1 10^3/uL (0.0-0.7); EOSINOPHILS % (AUTO) 1.9 %; HGB - HEMOGLOBIN 10.6 g/dL (12.0-16.0); LYMPHOCYTES # (AUTO) 2.2 10^3/uL (1.5-3.5); LYMPHOCYTES % (AUTO) 41.5 %; MEAN CORPUSCULAR HEMOGLOBIN 31.1 pg (27.0-31.0); MEAN CORPUSCULAR HGB CONC 33.5 g/dL (32.0-36.0); MEAN CORPUSCULAR VOLUME 92.8 fL (81.0-99.0); MEAN PLATELET VOLUME 7.1 fL (7.9-10.8); MONOCYTES # (AUTO) 0.8 10^3/uL (0.0-1.0); MONOCYTES % (AUTO) 14.4 %; NEUTROPHILS # (AUTO) 2.2 10^3/uL (1.5-6.6); NEUTROPHILS % (AUTO) 41.8 %; PLT - PLATELET COUNT 349 10^3/uL (130-450); RED BLOOD COUNT 3.42 10^6/uL (4.20-5.40); RED CELL DISTRIBUTION WIDTH 14.4 % (12.0-15.0); WHITE BLOOD COUNT 5.3 x10^3/uL (4.8-10.8)
[2018-07-09 06:59] LABS: ALBUMIN 3.2 g/dL (3.2-5.5); ALBUMIN/GLOBULIN RATIO 1.1 (1.0-2.2); BILIRUBIN,TOTAL 0.5 mg/dL (0.2-1.0); CALCIUM 8.5 mg/dL (8.5-10.3); CREATININE 1.1 mg/dL (0.4-1.0); TOTAL PROTEIN 6.2 g/dL (6.7-8.2)
[2018-07-09] MEDS: PANTOPRAZOLE 40 MG VIAL IVP SCH ×2 (09:26→20:32)
[2018-07-09] MEDS: SODIUM CHLORIDE FLUSH 0.9% 10 ML SYRINGE IVP SCH ×2 (09:26→18:12)
--- NOTE | 2018-07-09 09:42 | XRAY Report ---
Reason: sbo Procedure Date: 07/09/2018 Accession Number: [id number] / [id number] Procedure: XR - Abdomen 2 View X-Ray CPT Code: 45077 FULL RESULT: EXAM: ABDOMEN RADIOGRAPHY EXAM DATE: 07/09/2018 09:22 AM. CLINICAL HISTORY: Small bowel obstruction. Nausea. COMPARISON: 07/08/2018. 07/06/2018. TECHNIQUE: 2 views. FINDINGS: Lung Bases: Lung bases are clear. Bowel Gas Pattern: Mild gaseous distention of small bowel and colon. Postsurgical changes are seen throughout the abdomen as before. No portal venous gas or pneumatosis. Free Air: None. Other: Left renal calculi are again seen. Mild degenerative changes of the lower thoracic and lumbar spine. IMPRESSION: 1. Mild gaseous distention of small bowel and colon without evidence for obstruction. 2. No free air. 3. Left renal calculi. RADIA
--- NOTE | 2018-07-09 09:47 | PROVIDER PROGRESS NOTE ---
Subjective - Subjective Subjective: Dr. Gordon dictating progress Gustavo Ramírez on 07/09/2018. Subjectively the patient is experiencing crampy abdominal pain after eating full liquid dietShe is passing liquid stools and some flatus.On examination her abdomen is more distended today slightly tender. I ordered a flat and upright of the abdomen todayWhich I have reviewed. The x- ray shows copious gas in the colon which is not distended there are some areas of small bowel gas.Radiologist agrees that she does not have a complete bowel obstruction she may be partially obstructed or still have an ileus.Patient has had 20 operations in her abdomen numerous bowel resections and I would prefer not to operate on her abdomen for a partial bowel obstruction therefore we will treat her conservatively I have her on a clear liquid diet with protein supplements and bowel stimulants with Reglan and Dulcolax suppositoriesI think we should try conservative management because I am confident that she has a very short small bowel and is nutritionally compromised because of that secondary to her numerous resections and laparotomies for bowel obstruction over the over her entire life.Another consideration would be a PICC line and TPN as a supplement.I will discuss that with the hospitalist. Objective - Vital Signs/Intake & Output Vital Signs: Vital Signs x48h Temp Pulse Resp BP Pulse Ox 07/09/18 08:00 36.5 C 67 18 132/61 H 96 Intake & Output: Intake & Output 07/06/18 07/07/18 07/08/18 07/09/18 23:59 23:59 23:59 23:59 Intake Total 1737 1920 1950 360 Balance 1737 1920 1950 360 - Lab Results Fish Bones: 07/09/18 06:10 07/09/18 06:10 Other Labs: Lab Results x24hrs 07/09/18 07/09/18 07/09/18 Range/Units 06:10 06:10 06:10 WBC 5.3 (4.8-10.8) x10^3/uL RBC 3.42 L (4.20-5.40) 10^6/uL Hgb 10.6 L (12.0-16.0) g/dL Hct 31.8 L (37.0-47.0) % MCV 92.8 (81.0-99.0) fL MCH 31.1 H (27.0-31.0) pg MCHC 33.5 (32.0-36.0) g/dL RDW 14.4 (12.0-15.0) % Plt Count 349 (130-450) 10^3/uL MPV 7.1 L (7.9-10.8) fL Neut # (Auto) 2.2 (1.5-6.6) 10^3/uL Lymph # (Auto) 2.2 (1.5-3.5) 10^3/uL [place] # (Auto) 0.8 (0.0-1.0) 10^3/uL Eos # (Auto) 0.1 (0.0-0.7) 10^3/uL Baso # (Auto) 0.0 (0.0-0.1) 10^3/uL Absolute Nucleated RBC 0.00 x10^3/uL Nucleated RBC % 0.1 /100WBC Sodium 136 (135-145) mmol/L Potassium 3.5 (3.5-5.0) mmol/L Chloride 107 (101-111) mmol/L Carbon Dioxide 22 (21-32) mmol/L Anion Gap 7.0 (6-13) BUN 15 (6-20) mg/dL Creatinine 1.1 H (0.4-1.0) mg/dL Estimated GFR (MDRD) 50 L (>89) Glucose 142 H (70-100) mg/dL Calcium 8.5 (8.5-10.3) mg/dL Total Bilirubin 0.5 (0.2-1.0) mg/dL AST 19 (10-42) IU/L ALT 13 (10-60) IU/L Alkaline Phosphatase 70 (42-121) IU/L B-Natriuretic Peptide 279 H (5-100) pg/mL Total Protein 6.2 L (6.7-8.2) g/dL Albumin 3.2 (3.2-5.5) g/dL Globulin 3.0 (2.1-4.2) g/dL Albumin/Globulin Ratio 1.1 (1.0-2.2)
[2018-07-09] MEDS: FUROSEMIDE 20 MG TABLET PO SCH (11:49)
[2018-07-09] MEDS: LACTULOSE 10 GM /15 ML UDC PO SCH (11:49)
[2018-07-09] MEDS: KETOROLAC 15 MG/ML VIAL IVP PRN (14:07)
[2018-07-09] MEDS: ACETAMINOPHEN 325 MG TABLET PO PRN (18:09)
[2018-07-09] MEDS: SIMETHICONE CHEW 80 MG TABLET PO SCH ×2 (18:11→20:32)
[2018-07-09] MEDS: LOSARTAN 50 MG TABLET PO SCH (20:33)
[2018-07-10] MEDS: ACETAMINOPHEN 325 MG TABLET PO PRN ×2 (00:17→06:48)
[2018-07-10] MEDS: METOCLOPRAMIDE 10 MG/2 ML VIAL IVP SCH ×3 (00:18→12:34)
[2018-07-10] MEDS: SODIUM CHLORIDE FLUSH 0.9% 10 ML SYRINGE IVP PRN ×3 (00:18→09:22)
[2018-07-10] MEDS: SODIUM CHLORIDE FLUSH 0.9% 10 ML SYRINGE IVP SCH ×3 (00:18→16:41)
[2018-07-10 06:36] LABS: BASOPHILS % (AUTO) 0.5 %; EOSINOPHILS # (AUTO) 0.1 10^3/uL (0.0-0.7); EOSINOPHILS % (AUTO) 2.1 %; HGB - HEMOGLOBIN 10.4 g/dL (12.0-16.0); LYMPHOCYTES % (AUTO) 43.9 %; MEAN CORPUSCULAR HEMOGLOBIN 30.7 pg (27.0-31.0); MEAN CORPUSCULAR HGB CONC 33.3 g/dL (32.0-36.0); MEAN CORPUSCULAR VOLUME 92.1 fL (81.0-99.0); MEAN PLATELET VOLUME 6.5 fL (7.9-10.8); MONOCYTES # (AUTO) 0.6 10^3/uL (0.0-1.0); MONOCYTES % (AUTO) 13.5 %; NEUTROPHILS # (AUTO) 1.8 10^3/uL (1.5-6.6); PLT - PLATELET COUNT 362 10^3/uL (130-450); RED BLOOD COUNT 3.39 10^6/uL (4.20-5.40); RED CELL DISTRIBUTION WIDTH 14.7 % (12.0-15.0); WHITE BLOOD COUNT 4.5 x10^3/uL (4.8-10.8)
[2018-07-10] MEDS: GABAPENTIN 300 MG CAPSULE PO SCH ×3 (06:39→21:03)
[2018-07-10 06:50] LABS: ALBUMIN 3.1 g/dL (3.2-5.5); ALBUMIN/GLOBULIN RATIO 1.1 (1.0-2.2); BILIRUBIN,TOTAL 0.4 mg/dL (0.2-1.0); CALCIUM 8.8 mg/dL (8.5-10.3); CREATININE 1.1 mg/dL (0.4-1.0); TOTAL PROTEIN 5.9 g/dL (6.7-8.2)
[2018-07-10] MEDS: LACTULOSE 10 GM /15 ML UDC PO SCH (09:21)
[2018-07-10] MEDS: PANTOPRAZOLE 40 MG VIAL IVP SCH (09:21)
[2018-07-10] MEDS: SPIRONOLACTONE 25 MG TABLET PO SCH (09:21)
[2018-07-10] MEDS: SIMETHICONE CHEW 80 MG TABLET PO SCH ×4 (09:22→21:03)
--- NOTE | 2018-07-10 11:22 | Discharge Plan ---
Discharge Plan Disposition: Home, Self Care Condition: Fair Prescriptions: Losartan Potassium 25 mg PO DAILY #30 tablet Methylnaltrexone [place] [Relistor] 450 mg PO DAILY 60 Days #90 tablet Saccharomyces Boulardii [Florastor] 250 mg PO BID #60 capsule Spironolactone 25 mg PO DAILY #30 tablet Diet: Soft Activity Restrictions: No Restrictions Shower Restrictions: No Driving Restrictions: No Weight Bearing: Full Weight Instruction Topics: Methylnaltrexone injection Additional Instructions or Follow Up instructions: You were admitted for abdominal pain. You were seen by 2 general surgeons who both advised against surgery. After several trials of medication combinations, including Reglan, lactulose, stool softeners, suppositories, enemas and laxatives, it was decided that you should stay on Relistor as you had the most favorable effects. An echocardiogram was completed and showed elevated pressures on the right side of your heart and your physic matches this finding with an increased abdominal girth. You were started on Spironolactone which will help with abdominal swelling and may gradually help with the heart pressures. The best thing to do is to stop smoking all together, and I suggest a sleep study test in the near future. I have sent a prescription to the pharmacy for a Yogurt pill, which is a probiotic that will help with overall gut health. I have reduced your losartan dose since adding the Spironolactone. Please see your PCP within one week. Return to the ED if you are having increased vomiting, or increased abdominal pain. No Smoking: If you smoke, Please STOP! Call for help. Follow-up with: Surinder Earl MD [Primary Care Provider] -
[2018-07-10] MEDS ORDERED: IOPAMIDOL-300 50 ML VIAL ONE (11:26)
--- NOTE | 2018-07-10 12:26 | PROVIDER PROGRESS NOTE ---
Subjective - Prog Note Date Prog Note Date: 07/10/18 Prog Note Time: 12:24 - Subjective Pt reports feeling: Improved Subjective: Spoke with patient and her in room. Discussion lasted 60 minutes. Current Medications - Current Medications Current Medications: I did not review her medication list fpr appropriateness or dose. Objective - Vital Signs/Intake & Output Reviewed Vital Signs: Yes Vital Signs: Vital Signs x48h Temp Pulse Resp BP Pulse Ox 07/10/18 07:37 36.4 C L 57 L 16 112/52 L 95 Intake & Output: Intake & Output 07/07/18 07/08/18 07/09/18 07/10/18 23:59 23:59 23:59 23:59 Intake Total 1919 1949 2079 122 Balance 1919 1949 2079 1220 - Objective General Appearance: positive: No acute distress ENT: positive: No signs of dehydration Neck: positive: Trachea midline Respiratory: positive: No respiratory distress Cardiovascular: positive: Regular rate & rhythm Abdomen: positive: No distention Skin: positive: Color nml Extremities: positive: Non-tender, Nml appearance Neurologic/Psychiatric: positive: Oriented x3 - Lab Results Fish Bones: 07/10/18 06:21 07/10/18 06:21 Other Labs: Lab Results x24hrs 07/10/18 07/10/18 07/10/18 Range/Units 06:21 06:21 06:21 WBC 4.5 L (4.8-10.8) x10^3/uL RBC 3.39 L (4.20-5.40) 10^6/uL Hgb 10.4 L (12.0-16.0) g/dL Hct 31.3 L (37.0-47.0) % MCV 92.1 (81.0-99.0) fL MCH 30.7 (27.0-31.0) pg MCHC 33.3 (32.0-36.0) g/dL RDW 14.7 (12.0-15.0) % Plt Count 362 (130-450) 10^3/uL MPV 6.5 L (7.9-10.8) fL Neut # (Auto) 1.8 (1.5-6.6) 10^3/uL Lymph # (Auto) 2.0 (1.5-3.5) 10^3/uL [place] # (Auto) 0.6 (0.0-1.0) 10^3/uL Eos # (Auto) 0.1 (0.0-0.7) 10^3/uL Baso # (Auto) 0.0 (0.0-0.1) 10^3/uL Absolute Nucleated RBC 0.00 x10^3/uL Nucleated RBC % 0.1 /100WBC Sodium 139 (135-145) mmol/L Potassium 3.4 L (3.5-5.0) mmol/L Chloride 106 (101-111) mmol/L Carbon Dioxide 24 (21-32) mmol/L Anion Gap 9.0 (6-13) BUN 17 (6-20) mg/dL Creatinine 1.1 H (0.4-1.0) mg/dL Estimated GFR (MDRD) 50 L (>89) Glucose 108 H (70-100) mg/dL Calcium 8.8 (8.5-10.3) mg/dL Total Bilirubin 0.4 (0.2-1.0) mg/dL AST 16 (10-42) IU/L ALT 13 (10-60) IU/L Alkaline Phosphatase 64 (42-121) IU/L B-Natriuretic Peptide 93 (5-100) pg/mL Total Protein 5.9 L (6.7-8.2) g/dL Albumin 3.1 L (3.2-5.5) g/dL Globulin 2.8 (2.1-4.2) g/dL Albumin/Globulin Ratio 1.1 (1.0-2.2) Assessment/Plan - Problem List (1) Acute abdominal pain Impression: All 3 diagnoses listed here our part and parcel of the same problem. This patient has had over 20 abdominal operations by her history alone. The nature of these operations is unclear and the patient herself does not know why all the operations were done. She states that they were done for obstruction. She states one instance the small bowel or even possibly large bowel was bypassed. In another she was told that she was going to have a colostomy and she and her refused. Complicating matters further is a distant history of opiate use. She has not used opiates in 11 years. Last time was in 2006. I discussed the differences between structural and functional obstructions. I explained to her that no further abdominal surgery should be done unless there is a clear and complete understanding of what her abdominal anatomy is and even then this should be done as a last resort. This would also involve looking back at her previous operative reports to determine what was seen and what was done. With her current history I would strongly caution AGAINST any sort of surgical intervention. Her history is consistent with a functional obstruction not a structural one. I explained that there are not very good options for functional obstructions. We also touched upon the subject of Davis's esophagus and what this means on the cellular level as well as what it means regarding increased risk for esophageal carcinoma. To encapsulate the discussion I am recommending that an extensive search be completed to see whether or not there are any promotility agents (on the market or even in study) that could help the patient with her symptoms. In the meantime I think it would be very helpful to understand her current clinical situation if her operative reports can be gathered and reviewed. I explained th at would like to get a study to objectively prove that she does not have a bowel obstruction. This should be done prior to sending her home. I spoke with Misha Corbin regarding the aforementioned discussion in my recommendations.
[2018-07-10] MEDS ORDERED: METHYLNALTREXONE 12 MG/0.6 ML VIAL SUBQ SCH (15:27)
--- NOTE | 2018-07-10 16:26 | PROVIDER PROGRESS NOTE ---
Subjective - Prog Note Date Prog Note Date: 07/09/18 Prog Note Time: 10:00 - Subjective Pt reports feeling: No change Subjective: Roxane continues to complaint of abdominal pain in all 4 quadrants. She denies any new symptoms such as bleeding, vomiting, rashes, or a new cough. Objective - Vital Signs/Intake & Output Reviewed Vital Signs: Yes Vital Signs: Vital Signs x48h Temp Pulse Resp BP Pulse Ox 07/10/18 15:29 36.6 C 64 18 127/69 97 Intake & Output: Intake & Output 07/07/18 07/08/18 07/09/18 07/10/18 23:59 23:59 23:59 23:59 Intake Total 1919 1949 2079 1819 Balance 1919 1949 2079 1819 - Objective General Appearance: positive: Alert, Moderate distress, Anxious Eyes Bilateral: positive: Normal inspection ENT: positive: ENT inspection nml, Pharynx nml, No signs of dehydration, Pharyn geal erythema, Dry mucous membranes Neck: positive: Nml inspection, Thyroid nml, No JVD Respiratory: positive: Chest non-tender, No respiratory distress, Breath sounds nml Cardiovascular: positive: Regular rate & rhythm, No gallop, Systolic murmur Peripheral Pulses: 1+ Radial (R), 1+ Radial (L) Abdomen: positive: Tenderness, Guarding, Abnml bowel sounds Back: positive: Nml inspection Skin: positive: No rash, Warm, Dry Extremities: positive: Non-tender, Full ROM, Pedal edema (BUE edema.), Joint s welling Neurologic/Psychiatric: positive: Oriented x3, CN's nml (2-12), Motor nml, Sensation nml, Weakness, Depressed mood/affect Reflexes: Bicep (R): 3+, Bicep (L): 3+ - Lab Results Fish Bones: 07/10/18 06:21 07/10/18 06:21 Other Labs: Lab Results x24hrs 07/10/18 07/10/18 07/10/18 Range/Units 06:21 06:21 06:21 WBC 4.5 L (4.8-10.8) x10^3/uL RBC 3.39 L (4.20-5.40) 10^6/uL Hgb 10.4 L (12.0-16.0) g/dL Hct 31.3 L (37.0-47.0) % MCV 92.1 (81.0-99.0) fL MCH 30.7 (27.0-31.0) pg MCHC 33.3 (32.0-36.0) g/dL RDW 14.7 (12.0-15.0) % Plt Count 362 (130-450) 10^3/uL MPV 6.5 L (7.9-10.8) fL Neut # (Auto) 1.8 (1.5-6.6) 10^3/uL Lymph # (Auto) 2.0 (1.5-3.5) 10^3/uL [place] # (Auto) 0.6 (0.0-1.0) 10^3/uL Eos # (Auto) 0.1 (0.0-0.7) 10^3/uL Baso # (Auto) 0.0 (0.0-0.1) 10^3/uL Absolute Nucleated RBC 0.00 x10^3/uL Nucleated RBC % 0.1 /100WBC Sodium 139 (135-145) mmol/L Potassium 3.4 L (3.5-5.0) mmol/L Chloride 106 (101-111) mmol/L Carbon Dioxide 24 (21-32) mmol/L Anion Gap 9.0 (6-13) BUN 17 (6-20) mg/dL Creatinine 1.1 H (0.4-1.0) mg/dL Estimated GFR (MDRD) 50 L (>89) Glucose 108 H (70-100) mg/dL Calcium 8.8 (8.5-10.3) mg/dL Total Bilirubin 0.4 (0.2-1.0) mg/dL AST 16 (10-42) IU/L ALT 13 (10-60) IU/L Alkaline Phosphatase 64 (42-121) IU/L B-Natriuretic Peptide 93 (5-100) pg/mL Total Protein 5.9 L (6.7-8.2) g/dL Albumin 3.1 L (3.2-5.5) g/dL Globulin 2.8 (2.1-4.2) g/dL Albumin/Globulin Ratio 1.1 (1.0-2.2) ABX Reporting Has patient been on IV antibiotics over the past 48 hours?: No Assessment/Plan - Problem List (1) Acute abdominal pain Impression: The patient complains of mainly bilateral upper quadrant abdominal pain that began prior to admission, and has improved, although not resolved. General s urgery was consulted as the patient has continued to become worse with her symptoms despite the encouragement of her recent imaging; abdominal/pelvis CT with oral and IV contrast showing contrast all the way through the GI tract to the rectum (07/06). The patient continues to have ongoing pain and abdominal distension. She has had 2 more KUB x-rays, on 07/08 maybe an obstruction & 07/09 without evidence of obstruction. Clinically, she appears miserable and continues to have distension with tenderness requiring pain medication. General surgery suggests TPN, and no surgery or scopes. *The patient is not happy with this and request that she be transferred to a hospital in [place] since there is a surgeon at that facility who knows her and would be able to help her out. After a long conversation with her and her boyfriend, Haile, she is willing to get a second opinion tomorrow from our next general surgeon, Dr. Hoffmann. Plan: Continue to monitor and treat with IV toradol Q6H as needed, continue Reglan, and lactulose. (2) Ileus Impression: Initial imaging obtained on 07/04/18, showed a possible early ilious and re- imaging gave some further hope as there was oral contrast noted throughout the colon and was appreciated at the rectum. She remains on clear liquid. Upon exam, Roxane continues to complain of abdominal distension, a lack of BMs, and ongoing nausea. General surgery was consulted, who recommends a higher dose of Reglan, 3 enemas, and a suppository Q6H if no results. He also recommends bowel rest with TPN administration as she has been likely comprised for longer than her hospital stay. Plan: Continue care and await surgery second opinion consult in the AM. (3) History of bowel resection Impression: The patient has a remote history of this, including multiple bowel surgeries in the past. She states that she consequently has multiple bowel adhesions/scarring and has been more prone to obstructions. We have requested records from her PCP, which was offered to surgery. Plan: continue to monitor. (4) Tobacco abuse Impression: The patient admits to a current smoking history and is now down to about 5 cigarettes per day. She is somewhat interested in quitting. She refuses the need for nicotine replacement. Plan: Continue to monitor. (5) Pulmonary hypertension Impression: Echo results show an elevated RVSP at rest of 39 mm Hg indicating mild to moderate increased right heart pressures. A great medication for this is spironolactone, but she was given lasix 20 mg po today as she had increased BUE swelling. She has chronic increased abdominal girth, and continues to smoke. Plan: Continue to monitor and plan to start spironolactone once this acute GI problem is resolved.
[2018-07-10] MEDS: MAGNESIUM OXIDE 400 MG TABLET PO SCH (16:46)
[2018-07-10] MEDS ORDERED: METOCLOPRAMIDE 10 MG TABLET PO PRN (18:17)
[2018-07-10] MEDS ORDERED: ONDANSETRON ODT 4 MG TABLET TL PRN (18:18)
--- NOTE | 2018-07-10 18:22 | PROVIDER PROGRESS NOTE ---
Subjective - Prog Note Date Prog Note Date: 07/10/18 Prog Note Time: 10:00 - Subjective Pt reports feeling: Improved Subjective: Roxane was very happy with her second opinion surgical consult and agrees with the plan as "less is more" in her case. She is not a great surgical candidate. She denies any new symptoms such as shortness of breath, nausea, vomiting, constipation, a new cough or increased dizziness. Current Medications - Current Medications Current Medications: Active Medications Acetaminophen (Tylenol) 650 mg PO Q4HR PRN PRN Reason: Pain or Fever > 38C (100.4F) Last Admin: 07/10/18 06:48 Dose: 650 mg Gabapentin (Neurontin) 300 mg PO TID [facility] Last Admin: 07/10/18 14:15 Dose: 300 mg Lactulose (Enulose) 10 gm PO DAILY [facility] Last Admin: 07/10/18 09:21 Dose: 10 gm Losartan Potassium (Cozaar) 25 mg PO QPM [facility] Last Admin: 07/09/18 20:33 Dose: 25 mg Magnesium Oxide (Mag Ox) 400 mg PO DAILYWM [facility] Last Admin: 07/10/18 16:46 Dose: 400 mg Metoclopramide HCl (Reglan) 10 mg PO ACHS PRN PRN Reason: Abdominal Pain Ondansetron HCl (Zofran Odt) 4 mg TL Q4HR PRN PRN Reason: Nausea / Vomiting Pantoprazole Sodium (Protonix) 40 mg PO BID [facility] Simethicone (Mylicon) 80 mg PO 0900,1300,1800,2100 [facility] Last Admin: 07/10/18 12:34 Dose: 80 mg Spironolactone (Aldactone) 12.5 mg PO DAILY [facility] Last Admin: 07/10/18 09:21 Dose: 12.5 mg Gabapentin 300 mg PO QID 04/08/14 Estropipate 0.75 mg PO DAILY 07/05/18 Losartan [Cozaar] 50 mg PO QPM 07/05/18 raNITIdine [Zantac] 150 mg PO BID 07/05/18 Objective - Vital Signs/Intake & Output Reviewed Vital Signs: Yes Vital Signs: Vital Signs x48h Temp Pulse Resp BP Pulse Ox 07/10/18 15:29 36.6 C 64 18 127/69 97 Intake & Output: Intake & Output 09/10/1207/08/18 07/09/18 07/10/18 23:59 23:59 23:59 23:59 Intake Total 1919 1949 2079 1819 Balance 1919 1949 2079 1819 - Objective General Appearance: positive: No acute distress, Alert Eyes Bilateral: positive: Normal inspection, PERRL ENT: positive: ENT inspection nml, Pharynx nml, No signs of dehydration Neck: positive: Nml inspection, Thyroid nml, No JVD, Trachea midline Respiratory: positive: Chest non-tender, No respiratory distress, Breath sounds nml Cardiovascular: positive: Regular rate & rhythm, No gallop Peripheral Pulses: 1+ Radial (R), 1+ Radial (L) Abdomen: positive: Tenderness, Guarding, Abnml bowel sounds (hyperactive), Other (rotund, soft) Back: positive: Nml inspection Skin: positive: No rash, Warm, Dry Extremities: positive: Non-tender, Full ROM, No pedal edema Neurologic/Psychiatric: positive: Oriented x3, CN's nml (2-12), Motor nml, Sensation nml, Depressed mood/affect Reflexes: Bicep (R): 3+, Bicep (L): 3+ - Lab Results Fish Bones: 07/10/18 06:21 07/10/18 06:21 Other Labs: Lab Results x24hrs 07/10/18 07/10/18 07/10/18 Range/Units 06:21 06:21 06:21 WBC 4.5 L (4.8-10.8) x10^3/uL RBC 3.39 L (4.20-5.40) 10^6/uL Hgb 10.4 L (12.0-16.0) g/dL Hct 31.3 L (37.0-47.0) % MCV 92.1 (81.0-99.0) fL MCH 30.7 (27.0-31.0) pg MCHC 33.3 (32.0-36.0) g/dL RDW 14.7 (12.0-15.0) % Plt Count 362 (130-450) 10^3/uL MPV 6.5 L (7.9-10.8) fL Neut # (Auto) 1.8 (1.5-6.6) 10^3/uL Lymph # (Auto) 2.0 (1.5-3.5) 10^3/uL [place] # (Auto) 0.6 (0.0-1.0) 10^3/uL Eos # (Auto) 0.1 (0.0-0.7) 10^3/uL Baso # (Auto) 0.0 (0.0-0.1) 10^3/uL Absolute Nucleated RBC 0.00 x10^3/uL Nucleated RBC % 0.1 /100WBC Sodium 139 (135-145) mmol/L Potassium 3.4 L (3.5-5.0) mmol/L Chloride 106 (101-111) mmol/L Carbon Dioxide 24 (21-32) mmol/L Anion Gap 9.0 (6-13) BUN 17 (6-20) mg/dL Creatinine 1.1 H (0.4-1.0) mg/dL Estimated GFR (MDRD) 50 L (>89) Glucose 108 H (70-100) mg/dL Calcium 8.8 (8.5-10.3) mg/dL Total Bilirubin 0.4 (0.2-1.0) mg/dL AST 16 (10-42) IU/L ALT 13 (10-60) IU/L Alkaline Phosphatase 64 (42-121) IU/L B-Natriuretic Peptide 93 (5-100) pg/mL Total Protein 5.9 L (6.7-8.2) g/dL Albumin 3.1 L (3.2-5.5) g/dL Globulin 2.8 (2.1-4.2) g/dL Albumin/Globulin Ratio 1.1 (1.0-2.2) ABX Reporting Has patient been on IV antibiotics over the past 48 hours?: No Assessment/Plan - Problem List (1) Acute abdominal pain Impression: The patient was seen and examined by our general surgeon, Dr. Hoffmann, who does not recommend surgical intervention, nor bowel rest. The patient's pain is much improved by this evening, but has only consumed one meal. She states that she was able to expell much of the oral contrast from today's abdominal/pelvis CT with oral contrast. Preliminary results show contrast all the way to the rectum as earlier. Clinically, she appears sluggish, but encouraged as she was able to consume soft foods with very little increase in pain. The patient continues to refuse TPN, as recommended by her first surgical consult. I have prescribed Relisotor to be given SQ, and the patient is so far happy with the results. Plan: Continue to monitor and treat with oral APAP Q6H as needed, continue Reglan, PRN, Relistor, and lactulose. (2) Ileus Impression: Initial imaging obtained on 07/04/18, showed a possible early ilious and re- imaging gave some further hope as there was oral contrast noted throughout the colon and was appreciated at the rectum. She remains on clear liquid. Upon exam, Roxane continues to complain of abdominal distension, a lack of BMs, and ongoing nausea. Today, Relistor was given SQ for increased bowel motility. Plan: Continue care and await surgery second opinion consult in the AM. (3) History of bowel resection Impression: The patient has a remote history of this, including multiple bowel surgeries in the past. She states that she consequently has multiple bowel adhesions/scarring and has been more prone to obstructions. Outside records were received and scanned into our EMR. Plan: continue to monitor. (4) Tobacco abuse Impression: The patient admits to a current smoking history and is now down to about 5 cigarettes per day. She is somewhat interested in quitting. She refuses the need for nicotine replacement. Plan: Continue to monitor. (5) Pulmonary hypertension Impression: Echo results show an elevated RVSP at rest of 39 mm Hg indicating mild to moderate increased right heart pressures. She has chronic increased abdominal girth, and continues to smoke. Plan: Continue to monitor and continue spironolactone daily, which will be sent to her pharmacy.
[2018-07-10] MEDS: PANTOPRAZOLE 40 MG TABLET PO SCH (21:03)
[2018-07-10] MEDS: LOSARTAN 50 MG TABLET PO SCH (21:03)
--- NOTE | 2018-07-11 04:01 | CT Report ---
Reason: OBSTRUCTION Procedure Date: 07/10/2018 Accession Number: [id number] / [id number] Procedure: CT - Abdomen/Pelvis W/O CPT Code: FULL RESULT: EXAM: CT ABDOMEN AND PELVIS WITHOUT CONTRAST EXAM DATE: 07/10/2018 12:25 PM. CLINICAL HISTORY: OBSTRUCTION. History of bowel obstruction, nausea, abdominal pain. COMPARISONS: ABDOMEN/PELVIS W/O 07/04/2018. TECHNIQUE: Routine helical CT imaging was performed through the abdomen and pelvis. IV contrast: None. Enteric contrast: Yes. Reconstructions: Coronal and sagittal. In accordance with CT protocol optimization, one or more of the following dose reduction techniques were utilized for this exam: automated exposure control, adjustment of mA and/or KV based on patient size, or use of iterative reconstructive technique. FINDINGS: Lung Bases: Unremarkable. Liver: Unremarkable noncontrast appearance. Gallbladder/Bile Ducts: The gallbladder is surgically absent. No biliary dilatation. Spleen: Unremarkable. Pancreas: Unremarkable. Adrenal Glands: Unremarkable. Kidneys: There is a nonobstructing 2 mm calyceal calculus at the inferior pole of the left kidney (series 3 image 35), unchanged. There are multiple nonobstructing left renal calyceal calculi measuring up to 5 mm, as seen on the recent prior exam. No hydronephrosis or perinephric fat stranding. Peritoneal Cavity/Bowel: Enteric contrast has reached the sigmoid colon. There are borderline dilated contrast-filled loops of proximal small bowel in the left upper quadrant of the abdomen measuring up to 3.3 cm in diameter (series 3 image 38). There is a possible transition point in the right lower quadrant of the abdomen and the distal ileum (series 3 image 63, and series 5 image 26). The terminal ileum is decompressed. There are multiple surgical clips throughout the abdomen. No free air, free fluid, or rox adenopathy. No inflammatory changes or definite focal bowel wall thickening identified. The appendix is not visualized, but there is no inflammatory change or fluid adjacent to the to indicate acute appendicitis. Pelvic Organs: The uterus is not well-visualized and may be surgically absent. The visualized pelvic organs are unremarkable. Vasculature: There is mild atherosclerotic calcification of the abdominal aorta and iliac arteries. No aneurysm. Bones: No significant abnormality. Other: There is a 2.1 cm ovoid dystrophic calcification in the subcutaneous fat posterior to the left side of the pelvis, as seen on the prior exam. IMPRESSION: 1. Borderline dilated proximal small bowel, with a possible transition point in the distal ileum in the right lower quadrant of the abdomen. Enteric contrast has passed beyond this point and reach the sigmoid colon. Findings suggest mild partial small bowel obstruction or ileus. The degree of small bowel distention appears similar to prior CT on 07/04/2018 which was performed without enteric contrast. 2. Bilateral nonobstructing renal calyceal calculi, as seen on the prior exam. No hydronephrosis. RADIA
[2018-07-11] MEDS: ACETAMINOPHEN 325 MG TABLET PO PRN (04:04)
[2018-07-11] MEDS: GABAPENTIN 300 MG CAPSULE PO SCH (06:27)
[2018-07-11 07:44] VITALS: BP 149/74
[2018-07-11] MEDS ORDERED: METHYLNALTREXONE 12 MG/0.6 ML VIAL SUBQ SCH (09:04)
[2018-07-11] MEDS: LACTULOSE 10 GM /15 ML UDC PO SCH (09:09)
[2018-07-11] MEDS: SIMETHICONE CHEW 80 MG TABLET PO SCH (09:09)
[2018-07-11] MEDS: MAGNESIUM OXIDE 400 MG TABLET PO SCH (09:09)
[2018-07-11] MEDS: PANTOPRAZOLE 40 MG TABLET PO SCH (09:09)
[2018-07-11] MEDS: SPIRONOLACTONE 25 MG TABLET PO SCH (09:10)
--- NOTE | 2018-07-11 14:04 | DISCHARGE SUMMARY ---
"Discharge Summary Admit Date: 07/04/18 Discharge Date: 07/11/18 Discharging Provider: ROSALVA Antoine Primary Care Provider: Surinder Earl Code Status: Attempt Resuscitation Condition at Discharge: Good Discharge Disposition: 01 Home, Self Care - DIAGNOSES Admission Diagnoses: Ileus, unspecified (K56.7) Calculus of kidney (N20.0) Tobacco use (Z72.0) Discharge Diagnoses with Status of Each Condition: Acute abdominal pain (R10.9) resolved. Ileus (K56.7) resolved, stable. 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 Tobacco abuse (Z72.0) chronic, stable. Pulmonary hypertension (I27.20) chronic, stable. - HPI History of Present Illness: Roxane Bell is a 63 y/o female with history of multiple bowel obstructions owing to several abdominal surgeries who presented to the ED today with complain of diffuse sharp abdominal pain and cramp. She also complains of nausea but no vomiting and decreased appetite. She reports having a small bowel movement today and then a 'watery' stool after that. Prior to this, her last BM was 7 days ago. She denies chest pain or PRIMO. No fever or chills. Her last episode of bowel obstruction was 11 years ago. At bedside she appears to be resting comfortably. However she rates he pain 8/10. He abdomen is soft and non-distended but diminished bowel sounds noted. The rest of her history is unremarkable. CT of abdomen/pelvis obtained was suggestive of an ileus, thus warranting her admission. - CONSULTS | PROCEDURES Consultations: General surgery Procedures: none - HOSPITAL COURSE Hospital Course: (1) Acute abdominal pain The patient was seen and examined by our general surgeon, Dr. Hoffmann, who does not recommend surgical intervention, nor bowel rest. The patient's pain gradually improved, and was thought to be resolved upon discharge. CT results showed contrast all the way to the rectum on both scans during her stay. Clinically, she appeared sluggish, but encouraged as she was able to consume soft foods with very little increase in pain. The patient continues to refuse TPN, as recommended by her first surgical consult. The patient was prescribed Relistor, SQ while here, and her symptoms dramatically improved. (2) Ileus Initial imaging obtained on 07/04/18, showed a possible early ilious and re- imaging gave some further hope as there was oral contrast noted throughout the colon and was appreciated at the rectum. She remains on clear liquid. Upon exam, Roxane continues to complain of abdominal distension, a lack of BMs, and ongoing nausea. Relistor was given SQ for increased bowel motility, which appeared to have the most benefit for her. Oral Relistor was sent to her pharmacy for continued home use. (3) History of bowel resection The patient has a remote history of this, including multiple bowel surgeries in the past. She states that she consequently has multiple bowel adhesions/scarring and has been more prone to obstructions. Outside records were received and scanned into our EMR. (4) Tobacco abuse The patient admits to a current smoking history and is now down to about 5 cigarettes per day. She is somewhat interested in quitting. She refuses the need for nicotine replacement. (5) Pulmonary hypertension Echo results show an elevated RVSP at rest of 39 mm Hg indicating mild to moderate increased right heart pressures. She has chronic increased abdominal girth, and continues to smoke. The patient was continued on spironolactone daily, which was sent to her pharmacy. Disposition: The patient was in stable condition and prescriptions were sent to her pharmacy. She was transported via private car home with her . - ALLERGIES Allergies/Adverse Reactions: Allergies Allergy/AdvReac Type Severity Reaction Status Date / Time haloperidol [From Haldol] Allergy Hallucinati Verified 11/21/14 15:02 ons haloperidol lactate * Allergy Hallucinati Verified 11/21/14 15:02 [From Haldol] ons lorazepam [From Ativan] Allergy Hallucinati Verified 11/21/14 15:02 ons - MEDICATIONS Home Medications: Ambulatory Orders Medication Instructions Recorded Confirmed Gabapentin 300 mg PO QID 04/08/14 07/05/18 Estropipate 0.75 mg PO DAILY 07/05/18 07/05/18 raNITIdine [Zantac] 150 mg PO BID 07/05/18 07/05/18 Losartan Potassium 25 mg PO DAILY #30 tablet 07/11/18 Methylnaltrexone Joppa [Relistor] 450 mg PO DAILY 60 Days #90 tablet 07/11/18 Saccharomyces Boulardii [Florastor] 250 mg PO BID #60 capsule 07/11/18 Spironolactone 25 mg PO DAILY #30 tablet 07/11/18 - PHYSICAL EXAM AT DISCHARGE General Appearance: positive: No acute distress, Alert Eyes Bilateral: positive: Normal inspection, PERRL ENT: positive: ENT inspection nml, Pharynx nml, No signs of dehydration Neck: positive: Nml inspection, Thyroid nml, No JVD, Trachea midline, Lymphadenopathy (R), Lymphadenopathy (L) Respiratory: positive: Chest non-tender, No respiratory distress, Breath sounds nml Cardiovascular: positive: Regular rate & rhythm, No gallop, Systolic murmur Peripheral Pulses: positive: 2+ Abdomen: positive: Tenderness, Guarding, Other (rounded, soft, reduced girth) Back: positive: Nml inspection Skin: positive: No rash, Warm, Dry Extremities: positive: Non-tender, Full ROM, Nml appearance Neurologic/Psychiatric: positive: Oriented x3, CN's nml (2-12), Motor nml, Sensation nml, Depressed mood/affect Reflexes: Bicep (R): 3+, Bicep (L): 3+ - LABS Result Diagrams: 07/10/18 06:21 07/10/18 06:21 - DIAGNOSTIC IMAGING Diagnostic Imaging Results: Final report reviewed - FOLLOW UP Follow Up: Disposition: Home, Self Care Condition: Fair Prescriptions: Losartan Potassium 25 mg PO DAILY #30 tablet Methylnaltrexone Joppa [Relistor] 450 mg PO DAILY 60 Days #90 tablet Saccharomyces Boulardii [Florastor] 250 mg PO BID #60 capsule Spironolactone 25 mg PO DAILY #30 tablet Diet: Soft Activity Restrictions: No Restrictions Shower Restrictions: No Driving Restrictions: No Weight Bearing: Full Weight Instruction Topics: Methylnaltrexone injection Additional Instructions or Follow Up instructions: You were admitted for abdominal pain. You were seen by 2 general surgeons who both advised against surgery. After several trials of medication combinations, including Reglan, lactulose, stool softeners, suppositories, enemas and laxatives, it was decided that you should stay on Relistor as you had the most favorable effects. An echocardiogram was completed and showed elevated pressures on the right side of your heart and your physic matches this finding with an increased abdominal girth. You were started on Spironolactone which will help with abdominal swelling and may gradually help with the heart pressures. The best thing to do is to stop smoking all together, and I suggest a sleep study test in the near future. I have sent a prescription to the pharmacy for a Yogurt pill, which is a probiotic that will help with overall gut health. I have reduced your losartan dose since adding the Spironolactone. Please see your PCP within one week. Return to the ED if you are having increased vomiting, or increased abdominal pain. - TIME SPENT Time Spent in Discharge (Minutes): 45"
== END 2018-07-11 10:00 | disposition home or self-care (01) | DRG 390 ==
LOC: ED 18:27 → MS2 22:05 → OBSVTOIN 07-05 13:08
PROVIDERS: ADMIT Internal Medicine; ATTEND Nurse Practitioner
DX: K56.0 Paralytic ileus (principal); N20.0 Calculus of kidney; K59.09 Other constipation; F17.210 Nicotine dependence, cigarettes, uncomplicated; K21.9 Gastro-esophageal reflux disease without esophagitis; I27.20 Pulmonary hypertension, unspecified; Z79.2 Long term (current) use of antibiotics; Z90.49 Acquired absence of other specified parts of digestive tract; Z90.79 Acquired absence of other genital organ(s)
CPT/HCPCS: 36415; 74019; 74022; 74176; 74177; 80048; 80053; 81001; 81003; 83690; 83735; 83880; 85025; 87086; 93306; 96361; 96374; 96375; 99283; 99285

== ENCOUNTER 2018-11-10 16:12 | Emergency (ER) | payer MEDICARE ==
[2018-11-10 17:01] LABS: BASOPHILS # (AUTO) 0.1 10^3/uL (0.0-0.1); BASOPHILS % (AUTO) 0.5 %; EOSINOPHILS # (AUTO) 0.1 10^3/uL (0.0-0.7); EOSINOPHILS % (AUTO) 0.6 %; LYMPHOCYTES # (AUTO) 2.2 10^3/uL (1.5-3.5); LYMPHOCYTES % (AUTO) 18.7 %; MEAN CORPUSCULAR HEMOGLOBIN 30.1 pg (27.0-31.0); MEAN CORPUSCULAR HGB CONC 32.9 g/dL (32.0-36.0); MEAN CORPUSCULAR VOLUME 91.6 fL (81.0-99.0); MEAN PLATELET VOLUME 6.5 fL (7.9-10.8); MONOCYTES # (AUTO) 0.6 10^3/uL (0.0-1.0); MONOCYTES % (AUTO) 4.8 %; NEUTROPHILS # (AUTO) 8.8 10^3/uL (1.5-6.6); NEUTROPHILS % (AUTO) 75.4 %; PLT - PLATELET COUNT 418 10^3/uL (130-450); RED BLOOD COUNT 4.32 10^6/uL (4.20-5.40); RED CELL DISTRIBUTION WIDTH 14.1 % (12.0-15.0); WHITE BLOOD COUNT 11.6 x10^3/uL (4.8-10.8)
[2018-11-10 17:14] LABS: ALBUMIN 4.3 g/dL (3.2-5.5); ALBUMIN/GLOBULIN RATIO 1.4 (1.0-2.2); BILIRUBIN,TOTAL 0.4 mg/dL (0.2-1.0); CREATININE 1.2 mg/dL (0.4-1.0); TOTAL PROTEIN 7.3 g/dL (6.7-8.2)
[2018-11-10 19:05] LABS: BILIRUBIN,URINE NEGATIVE (NEGATIVE); GLUCOSE, URINE (UA) NEGATIVE (NEGATIVE); KETONES,URINE (UA) TRACE mg/dL (NEGATIVE); LEUKOCYTE ESTERASE, URINE NEGATIVE (NEGATIVE); NITRITE,URINE NEGATIVE (NEGATIVE); OCCULT BLOOD,URINE NEGATIVE (NEGATIVE); PH,URINE 5.5 PH (5.0-7.5); PROTEIN,URINE 30 mg/dL (NEGATIVE); UROBILINOGEN,URINE 0.2 (NORMAL) E.U./dL (NORMAL)
[2018-11-10 19:09] LABS: CLARITY,URINE CLOUDY (CLEAR)
[2018-11-10 19:22] LABS: AMORPHOUS SEDIMENT,UR Moderate /LPF; BACTERIA,URINE Rare /HPF (None Seen); RBC,URINE 0-5 /HPF (0-5); SQUAMOUS EPITHELIAL CELL,UR RARE Squamous (<= Few)
--- NOTE | 2018-11-10 19:33 | ED Physician Documentation ---
PD HPI ABD PAIN - Stated complaint Stated Complaint: BACK & SIDE PX/VOM - Chief complaint Chief Complaint: Abd Pain - History obtained from History obtained from: Patient - History of Present Illness Timing - onset: How many days ago (3 days with worsening today) Timing - details: Abrupt onset, Still present (worse today), Waxing and waning Quality: Aching, Sharp, Pain Location: LLQ Radiation: Left flank Improved by: No: Laying still Worsened by: No: Moving, Breathing, Palpation Associated symptoms: Nausea, Vomiting, Loss of appetite. No: Fever, Diarrhea, Constipation, Dysuria, Chest pain, Weight loss Similar symptoms before: Diagnosis (kidney stones remotely, not recently.) Recently seen: Not recently seen Review of Systems Constitutional: denies: Fever, Chills, Myalgias Nose: denies: Rhinorrhea / runny nose, Congestion Throat: denies: Sore throat Cardiac: denies: Chest pain / pressure Respiratory: denies: Cough GI: reports: Abdominal Pain, Nausea, Vomiting (today). denies: Constipation, Diarrhea : reports: Hematuria. 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: Hysterectomy - Present Medications Home Medications: Ambulatory Orders Medication Instructions Recorded Confirmed Gabapentin 300 mg PO QID 04/08/14 11/10/18 Estropipate 0.75 mg PO DAILY 07/05/18 11/10/18 Losartan Potassium 25 mg PO DAILY #30 tablet 07/11/18 11/10/18 Spironolactone 25 mg PO DAILY #30 tablet 07/11/18 11/10/18 Dexamethasone [Decadron] 4 mg PO DAILY #5 tablet 11/10/18 Naproxen 500 mg PO BID #20 tablet 11/10/18 Tamsulosin [Flomax] 0.4 mg PO DAILY #5 capsule 11/10/18 - Allergies Allergies/Adverse Reactions: Allergies Allergy/AdvReac Type Severity Reaction Status Date / Time haloperidol [From Haldol] Allergy Hallucinati Verified 11/10/18 16:44 ons haloperidol lactate * Allergy Hallucinati Verified 11/10/18 16:44 [From Haldol] ons lorazepam [From Ativan] Allergy Hallucinati Verified 11/10/18 16:44 ons - Social History Does the pt smoke?: Yes Smoking Status: Current every day smoker Does the pt drink ETOH?: Yes Does the pt have substance abuse?: No - Immunizations Immunizations are current?: Yes - POLST Patient has POLST: No PD ED PE NORMAL - Vitals Vital signs reviewed: Yes - General General: Alert and oriented X 3, Well developed/nourished, Other (appears in pain, but does not want narcotic meds - whatever we can give to try to help the pain. ) - HEENT HEENT: Pharynx benign - Neck Neck: Supple, no meningeal sign, No adenopathy - Cardiac Cardiac: RRR, No murmur - Respiratory Respiratory: Clear bilaterally - Abdomen Abdomen: Normal bowel sounds, Soft, Non distended, No organomegaly, Other (not much tender in area of the pain) - Female Female : Deferred - Rectal Rectal: Deferred - Derm Derm: Normal color, Warm and dry, No rash - Extremities Extremities: No tenderness to palpate, Normal ROM s pain, No edema, No calf tenderness / cord - Neuro Neuro: Alert and oriented X 3, No motor deficit, Normal speech Eye Opening: Spontaneous Motor: Obeys Commands Verbal: Oriented GCS Score: 15 Results - Vitals Vitals: Oxygen O2 Source Room air - Labs Labs: Laboratory Tests 11/10/18 11/10/18 11/10/18 16:56 16:56 17:07 WBC 11.6 H RBC 4.32 Hgb 13.0 Hct 39.5 MCV 91.6 MCH 30.1 MCHC 32.9 RDW 14.1 Plt Count 418 MPV 6.5 L Neut # (Auto) 8.8 H Lymph # (Auto) 2.2 Saunders # (Auto) 0.6 Eos # (Auto) 0.1 Baso # (Auto) 0.1 Absolute Nucleated RBC 0.01 Nucleated RBC % 0.1 Sodium 134 L Potassium 3.3 L Chloride 102 Carbon Dioxide 22 Anion Gap 10.0 BUN 16 Creatinine 1.2 H Estimated GFR (MDRD) 46 L Glucose 172 H Calcium 9.0 Total Bilirubin 0.4 AST 26 ALT 20 Alkaline Phosphatase 75 Total Protein 7.3 Albumin 4.3 Globulin 3.0 Albumin/Globulin Ratio 1.4 Lipase 47 Urine Color YELLOW Urine Clarity CLOUDY Urine pH 5.5 Ur Specific [place] >=1.030 H Urine Protein 30 H Urine Glucose (UA) NEGATIVE Urine Ketones TRACE Urine Occult Blood NEGATIVE Urine Nitrite NEGATIVE Urine Bilirubin NEGATIVE Urine Urobilinogen 0.2 (NORMAL) Ur Leukocyte Esterase NEGATIVE Urine RBC 0-5 Urine WBC 0-3 Ur Squamous Epith Cells RARE Squamous Amorphous Sediment Moderate Urine Bacteria Rare Ur Microscopic Review INDICATED Urine Culture Comments NOT INDICATED - Rads (name of study) KUB CT Radiology: Prelim report reviewed (7x6 mm distal ureteral stone, with mild to moderate hydroureter due to stone. Else okay. ) PD MEDICAL DECISION MAKING - ED course Complexity details: reviewed results (7 mm stone distal left ureter. mild to moderate hydro. ), re-evaluated patient (mild improvement with IV meds. She still wants no narcotics. Gave low dose Ketamine (about 2 mg/kg?), considered differential, d/w patient Departure - Departure Disposition: 01 Home, Self Care Clinical Impression: Ureterolithiasis, Renal colic on left side Abdominal pain Qualifiers: Abdominal location: left lower quadrant Qualified Code(s): R10.32 - Left lower quadrant pain Condition: Stable Record reviewed to determine appropriate education?: Yes Instructions: ED Stone Renal W Colic Follow-Up: Surinder Earl MD [Primary Care Provider] - Prescriptions: Dexamethasone [Decadron] 4 mg PO DAILY #5 tablet Naproxen 500 mg PO BID #20 tablet Tamsulosin [Flomax] 0.4 mg PO DAILY #5 capsule Comments: You do have a stone that is passing down the left ureter and is about three quarters [address] way down or so. Use anti-inflammatories of naproxen twice daily and Decadron steroid daily for the next several days until this seems to pass. TMs are loose and tries to reduce spasming of the ureter and promote passage as well and is taken daily. Add Tylenol if needed for pains. Recheck if not improving over the next few days and follow-up with your urologist. Discharge Date/Time: 11/10/18 23:03
[2018-11-10] MEDS ORDERED: SODIUM CHLORIDE 0.9% 1,000 ML IV ONE (19:54)
[2018-11-10] MEDS ORDERED: LIDOCAINE-MPF 2% 0 ML in SODIUM CHLORIDE 0.9% 50 ML IV STA (19:59)
[2018-11-10] MEDS ORDERED: KETOROLAC 30 MG/ML VIAL IVP STA (19:59)
[2018-11-10] MEDS ORDERED: ONDANSETRON 4 MG/2 ML VIAL IVP STA (20:02)
[2018-11-10] MEDS ORDERED: ACETAMINOPHEN 1,000 MG/100 ML 100 ML IV STA (20:02)
--- NOTE | 2018-11-10 21:11 | CT Report ---
Reason: right abd/flank pain, history of stones and SBO Procedure Date: 11/10/2018 Accession Number: [id number] / [id number] Procedure: CT - KUB CPT Code: FULL RESULT: EXAM: CT ABDOMEN AND PELVIS (CT KUB). EXAM DATE: 11/10/2018 08:34 PM. CLINICAL HISTORY: Right abdomen /flank pain, history of stones and small bowel obstruction. COMPARISONS: abdomen/pelvis with 07/06/2018 1:52 PM. TECHNIQUE: Routine axial helical CT imaging was performed through the abdomen and pelvis without IV contrast. Reconstructions: Coronal and sagittal. In accordance with CT protocol optimization, one or more of the following dose reduction techniques were utilized for this exam: automated exposure control, adjustment of mA and/or KV based on patient size, or use of iterative reconstructive technique. FINDINGS: Lung bases: No acute findings. Liver: Unremarkable. Gallbladder: Surgically removed. Bile ducts: Moderate, duct dilatation measuring 1.4 cm, unchanged. This tapers distally. Pancreas: Unremarkable. Spleen: Unremarkable. Adrenals: Unremarkable. Kidneys: Moderate left hydronephrosis and hydroureter being caused by a distal ureteral calculus measuring 7 x 6 mm. Multiple left renal calculi, 1 of the largest seen in the lower pole left kidney measuring 7 mm. Moderate left perinephric stranding. A few small right renal calculi. Bowel: Postsurgical changes. A few sigmoid colon diverticula. No acute bowel findings are seen. No evidence for bowel obstruction. No free fluid or free air. Pelvis: The bladder and remaining pelvic organs appear unremarkable. Vasculature: No acute findings. Bones: No acute bone findings. IMPRESSION: 1. Moderate left hydronephrosis and hydroureter being caused by a distal ureteral calculus measuring 7 x 6 mm. Multiple bilateral renal calculi, left greater than right. 2. A few sigmoid diverticula. 3. Moderate common duct dilatation measuring 1.4 cm, tapers distally, appears unchanged. 4. See above. RADIA
[2018-11-10] MEDS ORDERED: KETAMINE 500 MG/10 ML VIAL IVP STA (21:39)
[2018-11-10] MEDS ORDERED: TAMSULOSIN 0.4 MG CAPSULE PO STA (21:39)
[2018-11-10 22:50] VITALS: BP 124/71
== END 2018-11-10 23:03 | disposition home or self-care (01) ==
LOC: ED 16:12
DX: N13.2 Hydronephrosis with renal and ureteral calculous obstruction (principal); Z87.442 Personal history of urinary calculi; I10 Essential (primary) hypertension; F17.200 Nicotine dependence, unspecified, uncomplicated
CPT/HCPCS: 36415; 74176; 80053; 81001; 83690; 85025; 96361; 96365; 96375; 99283; A9270; J0131; 81003; 87086

== ENCOUNTER 2019-07-14 09:39 | Outpatient (CLI) | payer MEDICARE ==
--- NOTE | 2019-07-15 10:26 | XRAY Report ---
Reason: RENAL CALCULUS Procedure Date: 07/14/2019 Accession Number: [id number] / [id number] Procedure: XR - Abdomen 1 View X-Ray CPT Code: 78602 FULL RESULT: EXAM: ABDOMEN RADIOGRAPHY EXAM DATE: 07/14/2019 10:00 AM. CLINICAL HISTORY: Right-sided pain for 3 weeks. History of renal stones. COMPARISON: ABDOMEN 2 VIEW 07/09/2018 9:15 AM. ABDOMEN/PELVIS W/O 07/10/2018 12:25 PM. TECHNIQUE: 1 view. FINDINGS: Bowel Gas Pattern: Within normal limits. No dilated loops. Other: Multiple surgical clips over the abdomen and pelvis. Small calcifications project over both kidneys. IMPRESSION: Small calcifications project over both kidneys. RADIA
== END 2019-07-14 09:40 | disposition home or self-care (01) ==
LOC: DI 09:39
PROVIDERS: ATTEND Urology
DX: N20.0 Calculus of kidney (principal)
CPT/HCPCS: 74018

== ENCOUNTER 2019-09-09 09:01 | Outpatient (CLI) | payer MEDICARE ==
--- NOTE | 2019-09-10 09:01 | XRAY Report ---
Reason: CALCULUS OF KIDNEY Procedure Date: 09/09/2019 Accession Number: [id number] / [id number] Procedure: XR - Abdomen 1 View X-Ray CPT Code: 41863 Final Report FULL RESULT: EXAM: ABDOMEN RADIOGRAPHY EXAM DATE: 09/09/2019 09:29 AM. CLINICAL HISTORY: CALCULUS OF KIDNEY. COMPARISON: ABDOMEN 1 VIEW 07/14/2019 9:44 AM KUB 11/10/2018 8:16 PM. TECHNIQUE: 1 view. FINDINGS: Bowel Gas Pattern: Within normal limits. No dilated loops. Other: Multiple left renal stones are seen measuring up to about 5 mm. The right kidney appears smaller than the left. Possible 2 mm stone seen in the right kidney. Multiple surgical clips in the abdomen and pelvis. IMPRESSION: 1. Nephrolithiasis, left greater than right. 2. Right kidney appears smaller than the left. RADIA
== END 2019-09-09 09:02 | disposition home or self-care (01) ==
LOC: DI 09:01
PROVIDERS: ATTEND Urology
DX: N20.0 Calculus of kidney (principal)
CPT/HCPCS: 74018

== ENCOUNTER 2020-01-09 14:30 | Outpatient (CLI) | payer MEDICARE, OTHER ==
--- NOTE | 2020-01-09 15:26 | XRAY Report ---
Reason: [id number] Procedure Date: 01/09/2020 Accession Number: [id number] / [id number] Procedure: XR - Abdomen 1 View X-Ray CPT Code: 49962 Final Report FULL RESULT: EXAM: ABDOMEN RADIOGRAPHY EXAM DATE: 01/09/2020 02:58 PM. CLINICAL HISTORY: [id number]. Renal calculus. Patient states she has had multiple surgeries. COMPARISON: ABDOMEN 1 VIEW 09/09/2019 9:18 AM. TECHNIQUE: 1 view. FINDINGS: Bowel Gas Pattern: Within normal limits. No dilated loops. Numerous surgical clips and sutures throughout the mid to lower abdomen and throughout the pelvis. Cholecystectomy clips right upper quadrant of the abdomen. Other: Overall stable size and location of several left renal nephroliths measuring up to 5 mm, seen projecting over the upper, mid and lower poles. 2 mm nephrolith lower pole right kidney as before. No ureteral stones identified. IMPRESSION: Stable appearance and quantity of bilateral radiopaque nephroliths. RADIA
== END 2020-01-09 14:31 | disposition home or self-care (01) ==
LOC: DI 14:30
PROVIDERS: ATTEND Urology
DX: N20.0 Calculus of kidney (principal)
CPT/HCPCS: 74018

== ENCOUNTER 2020-09-10 11:01 | Outpatient (CLI) | payer MEDICARE ==
--- NOTE | 2020-09-10 15:32 | XRAY Report ---
PROCEDURE: Abdomen 1 View X-Ray INDICATIONS: RENAL CALCULUS TECHNIQUE: 1 view of the abdomen were acquired. COMPARISON: X-ray abdomen 01/09/2020. FINDINGS: Surgical changes and devices: Cholecystectomy clips are present. Multiple clips are noted overlying t he pelvis. Bowel: No pneumoperitoneum. The bowel gas pattern is normal. Soft tissues: No masses; visualized solid organ contours appear normal in size. Unchanged calcificat ions are noted overlying the left renal shadow. Liver shadow is enlarged. Bones: No suspicious bony abnormalities. IMPRESSION: Calcifications remain present overlying the left renal shadow. Reviewed by: Maxine Chappell MD on 09/10/2020 3:30 PM PST Approved by: Maxine Chappell MD on 09/10/2020 3:30 PM PST Station ID: [id number]
== END 2020-09-10 11:02 | disposition home or self-care (01) ==
LOC: DI 11:01
PROVIDERS: ATTEND Urology
DX: N20.0 Calculus of kidney (principal)
CPT/HCPCS: 74018

== ENCOUNTER 2021-06-10 09:59 | Outpatient (CLI) | payer MEDICARE ==
--- NOTE | 2021-06-28 06:58 | XRAY Report ---
PROCEDURE: Abdomen 1 View X-Ray INDICATIONS: NEPHROLITHIASIS TECHNIQUE: 1 view of the abdomen were acquired. COMPARISON: 09/10/2020. FINDINGS: Surgical changes and devices: Numerous surgical clips projecting over the abdomen and pelvis are stab le compared to prior exam. Bowel: No pneumoperitoneum. The bowel gas pattern is normal. Soft tissues: No masses; visualized solid organ contours appear normal in size. 1 mm calcification p rojects over the midpole of the right renal shadow. No definite stones project over the left renal sh adow, however the left renal shadow is not well identified due to bowel gas. Bones: No suspicious bony abnormalities. IMPRESSION: Probable 1 mm right renal stone. Reviewed by: Vandana Awan MD, PhD on 06/10/2021 11:47 AM PDT Approved by: Vandana Awan MD, PhD on 06/10/2021 11:47 AM PDT Station ID: [id number]
== END 2021-06-10 10:00 | disposition home or self-care (01) ==
LOC: DI 09:59
PROVIDERS: ATTEND Urology
DX: N20.0 Calculus of kidney (principal)

== ENCOUNTER 2023-09-14 09:54 | Outpatient (CLI) | payer MEDICARE ==
--- NOTE | 2023-09-14 13:16 | XRAY Report ---
PROCEDURE: Hip w/Pelvis 2-3V LT INDICATIONS: LT HIP PAIN TECHNIQUE: AP pelvis with lateral view(s) of the left hip(s). COMPARISON: None. FINDINGS: Bones: No fractures or dislocations. No suspicious bony lesions. Soft tissues: No suspicious soft tissue calcifications or masses. Multiple surgical clips projecting over the lower abdomen and pelvis. IMPRESSION: No acute bony abnormality. Reviewed by: Slim Champion MD on 09/14/2023 1:15 PM PST Approved by: Slim Champion MD on 09/14/2023 1:15 PM PST Station ID: [id number]
--- NOTE | 2023-09-14 13:17 | XRAY Report ---
PROCEDURE: Finger(s) RT INDICATIONS: PAIN IN RT FINGER TECHNIQUE: AP hand, 2 views of the first finger(s) acquired. COMPARISON: None. FINDINGS: Bones: No fractures or dislocations. Moderate degenerative changes of the first interphalangeal join t with prominent osteophytes. No suspicious bony lesions. Soft tissues: No suspicious soft tissue calcifications or masses. IMPRESSION: No acute bony abnormality. Reviewed by: Slim Champion MD on 09/14/2023 1:16 PM PST Approved by: Slim Champion MD on 09/14/2023 1:16 PM PST Station ID: [id number]
== END 2023-09-14 09:55 | disposition home or self-care (01) ==
LOC: DI 09:54
PROVIDERS: ATTEND Internal Medicine
DX: M19.041 Primary osteoarthritis, right hand (principal); M70.62 Trochanteric bursitis, left hip